=== PATIENT | male | born 1960 | race Hispanic/Latino ===

== ENCOUNTER 2021-09-12 23:10 | Inpatient (IN) | payer OTHER ==
[~2021-09-12] VITALS: Ht 172.7 cm; Wt 74.8 kg
[2021-09-12] MEDS ORDERED: SODIUM CHLORIDE 0.9% 1000ML 1,000 ML IV SCH (23:15)
[2021-09-12] MEDS ORDERED: SODIUM CHLORIDE 0.9% 1000ML 1,000 ML IV ONE (23:30)
[2021-09-12 23:38] LABS: BASOPHILS # (AUTO) 0.1 (0.0-0.1); BASOPHILS % 0.6 % (0.0-1.0); EOSINOPHILS # (AUTO) 0.1 (0.0-0.4); EOSINOPHILS % 0.7 % (0.0-6.0); HEMATOCRIT 25.6 % (38.2-49.6); LYMPHOCYTES # (AUTO) 1.1 (1.0-3.2); LYMPHOCYTES % 8.1 % (18.0-39.1); MEAN CORPUSCULAR HEMOGLOBIN 21.3 pg (28-32); MEAN CORPUSCULAR HGB CONC 26.2 g/dL (31-35); MEAN CORPUSCULAR VOLUME 81.3 fL (81-99); MONOCYTES # (AUTO) 0.8 (0.2-0.8); NEUTROPHILS # (AUTO) 11.7 (2.1-6.9); NEUTROPHILS % 83.8 % (38.7-80.0); PLATELET COUNT 501 x10e3/uL (140-360); RED BLOOD COUNT 3.15 x10e6/uL (4.3-5.7); RED CELL DISTRIBUTION WIDTH 18.6 % (11.7-14.4)
[2021-09-12 23:44] LABS: HEMOGLOBIN 6.7 g/dL (14.0-18.0)
[2021-09-12] MEDS ORDERED: SODIUM CHLORIDE 0.9% 250ML 250 ML IV ONE (23:45)
[2021-09-12 23:57] LABS: ALBUMIN 2.3 g/dL (3.5-5.0); ALBUMIN/GLOBULIN RATIO 0.5 (0.8-2.0); CALCIUM 8.9 mg/dL (8.4-10.2); CREATININE, SERUM 0.95 mg/dL (0.72-1.25)
[2021-09-13] VITALS (7 sets, daily range): BP systolic 97–116; BP diastolic 65–76
[2021-09-13] MEDS ORDERED: SODIUM CHLORIDE 0.9% 50ML 50 ML ONE (00:29)
[2021-09-13] MEDS ORDERED: IOPAMIDOL 370 MG/ML 200 ML INFUS..BTL INJ ONE (00:30)
[2021-09-13 01:14] LABS: CREATINE KINASE MB 0.8 ng/mL (0-5.0)
[2021-09-13 01:32] LABS: % IRON SATURATION 6 % (15-50); IRON 20 ug/dL (65-175); TOTAL IRON BINDING CAPACITY 337 ug/dL (261-478); TRANSFERRIN 241 mg/dL (174-364)
[2021-09-13] MEDS: SODIUM CHLORIDE 0.9% 1000ML 1,000 ML IV SCH ×3 (02:29→16:00)
[2021-09-13] MEDS ORDERED: Vancomycin IV 1 GM in SODIUM CHLORIDE 0.9% 250ML 250 ML IV ONE (03:15)
[2021-09-13] MEDS ORDERED: SODIUM CHLORIDE 0.9% 250ML 250 ML IV ONE (04:30)
[2021-09-13 07:10] LABS: CLARITY,URINE CLEAR (CLEAR); COLOR,URINE YELLOW (YELLOW); LEUKOCYTE ESTERASE ,URINE NEGATIVE (NEGATIVE); NITRITE,URINE NEGATIVE (NEGATIVE)
[2021-09-13 07:11] LABS: KETONES,URINE TRACE (NEGATIVE); PROTEIN,URINE DIPSTICK TRACE (NEGATIVE); URINE UROBILINOGEN 1 mg/dL (0.2 - 1)
[2021-09-13 07:12] LABS: BACTERIA,URINE RARE /HPF; EPITHELIAL CELLS,URINE RARE /LPF; RBC,URINE 0-5 /HPF (0-5); WBC,URINE (MAN) 0-5 /HPF (0-5)
[2021-09-13 11:40] LABS: INR 11.76
[2021-09-13] MEDS: IRON SUCROSE 100 MG in SODIUM CHLORIDE 0.9% 100 ML 100 ML IV SCH (12:49)
[2021-09-13 15:09] LABS: BASOPHILS % 0.4 % (0.0-1.0); EOSINOPHILS # (AUTO) 0.1 (0.0-0.4); EOSINOPHILS % 0.7 % (0.0-6.0); HEMATOCRIT 32.3 % (38.2-49.6); HEMOGLOBIN 9.9 g/dL (14.0-18.0); LYMPHOCYTES # (AUTO) 0.8 (1.0-3.2); LYMPHOCYTES % 7.6 % (18.0-39.1); MEAN CORPUSCULAR HGB CONC 30.7 g/dL (31-35); MEAN CORPUSCULAR VOLUME 84.8 fL (81-99); MONOCYTES # (AUTO) 0.8 (0.2-0.8); MONOCYTES % 7.5 % (4.4-11.3); NEUTROPHILS # (AUTO) 8.9 (2.1-6.9); NEUTROPHILS % 83.2 % (38.7-80.0); PLATELET COUNT 287 x10e3/uL (140-360); RED BLOOD COUNT 3.81 x10e6/uL (4.3-5.7)
[2021-09-13 15:25] LABS: CALCIUM 8.4 mg/dL (8.4-10.2); CREATININE, SERUM 0.76 mg/dL (0.72-1.25)
[2021-09-13] MEDS: CEFEPIME 1 GM in SODIUM CHLORIDE 0.9% 50ML 50 ML IV SCH ×2 (15:30→21:57)
[2021-09-13] MEDS ORDERED: CETIRIZINE HCL10 M1 PO (16:40)
[2021-09-13] MEDS ORDERED: LISINOPRIL2.5 MG PO (16:40)
[2021-09-13] MEDS ORDERED: METFORMIN HCL850 MG PO (16:40)
[2021-09-13] MEDS ORDERED: ASPIRIN CHEW81 MG PO (16:40)
[2021-09-13] MEDS ORDERED: FLOMAX0.4 MG PO (16:40)
[2021-09-13] MEDS ORDERED: JARDIANCE25 MG PO (16:40)
[2021-09-13] MEDS ORDERED: GLIPIZIDE5 MG PO (16:40)
[2021-09-13] MEDS ORDERED: METOPROLOL SUCC25 MG PO (16:40)
[2021-09-13] MEDS ORDERED: OMEPRAZOLE40 MG PO (16:40)
[2021-09-13] MEDS ORDERED: WARFARIN SODIU2.5 MG PO (16:40)
[2021-09-13] MEDS ORDERED: LIPITOR20 MG PO (16:40)
[2021-09-13] MEDS ORDERED: FINASTERIDE5 MG PO (16:40)
[2021-09-13] MEDS ORDERED: DEXTROSE 50% SYRINGE 50 ML IV PRN (16:45)
[2021-09-13] MEDS: INSULIN REGULAR, HUMAN 100 UNIT/1 ML SQ SCH ×2 (17:00→22:54)
[2021-09-13] MEDS: Vancomycin IV 1 GM in SODIUM CHLORIDE 0.9% 250ML 250 ML IV SCH (19:35)
[2021-09-13 20:58] LABS: INR 2.42; PROTHROMBIN TIME 27.7 seconds (11.9-14.5)
[2021-09-14] VITALS (8 sets, daily range): BP systolic 112–123; BP diastolic 74–81
[2021-09-14] MEDS: SODIUM CHLORIDE 0.9% 1000ML 1,000 ML IV SCH ×4 (00:10→22:46)
[2021-09-14] MEDS: Vancomycin IV 1 GM in SODIUM CHLORIDE 0.9% 250ML 250 ML IV SCH ×2 (03:53→17:56)
[2021-09-14] MEDS: CEFEPIME 1 GM in SODIUM CHLORIDE 0.9% 50ML 50 ML IV SCH ×3 (05:39→21:03)
[2021-09-14 06:20] LABS: BASOPHILS % 0.4 % (0.0-1.0); EOSINOPHILS # (AUTO) 0.1 (0.0-0.4); EOSINOPHILS % 1.2 % (0.0-6.0); HEMATOCRIT 29.2 % (38.2-49.6); HEMOGLOBIN 8.9 g/dL (14.0-18.0); LYMPHOCYTES # (AUTO) 0.6 (1.0-3.2); LYMPHOCYTES % 5.8 % (18.0-39.1); MEAN CORPUSCULAR HEMOGLOBIN 25.8 pg (28-32); MEAN CORPUSCULAR HGB CONC 30.5 g/dL (31-35); MEAN CORPUSCULAR VOLUME 84.6 fL (81-99); MONOCYTES # (AUTO) 0.8 (0.2-0.8); MONOCYTES % 7.6 % (4.4-11.3); NEUTROPHILS # (AUTO) 9.1 (2.1-6.9); NEUTROPHILS % 84.4 % (38.7-80.0); PLATELET COUNT 216 x10e3/uL (140-360); RED BLOOD COUNT 3.45 x10e6/uL (4.3-5.7); RED CELL DISTRIBUTION WIDTH 19.5 % (11.7-14.4)
[2021-09-14 06:57] LABS: ALBUMIN 2.6 g/dL (3.5-5.0); ALBUMIN/GLOBULIN RATIO 0.6 (0.8-2.0); ANION GAP 8.5 mmol/L (8-16); CALCIUM 8.6 mg/dL (8.4-10.2); CREATININE, SERUM 0.69 mg/dL (0.72-1.25); MAGNESIUM 1.6 MG/DL (1.3-2.1); POTASSIUM 4.5 mmol/L (3.5-5.1)
[2021-09-14 06:59] LABS: INR 2.44; PROTHROMBIN TIME 27.9 seconds (11.9-14.5)
[2021-09-14] MEDS: INSULIN REGULAR, HUMAN 100 UNIT/1 ML SQ SCH ×4 (07:30→20:28)
[2021-09-14] MEDS: IRON SUCROSE 100 MG in SODIUM CHLORIDE 0.9% 100 ML 100 ML IV SCH (09:14)
[2021-09-14] MEDS ORDERED: HYDROMORPHONE 1MG/1ML INJ IV PRN (11:45)
[2021-09-14] MEDS ORDERED: SODIUM CHLORIDE 0.9% 250ML 250 ML ONE ×2 (13:47→16:23)
[2021-09-14] MEDS ORDERED: BISACODYL 5 MG TAB EC PO ONE ×3 (21:45→23:45)
[2021-09-14 23:11] LABS: INR 2.3; PROTHROMBIN TIME 26.6 seconds (11.9-14.5)
[2021-09-14] MEDS ORDERED: CITRATE OF MAGNESIA 300ML BOTTLE PO ONE (23:45)
[2021-09-15] VITALS (9 sets, daily range): BP systolic 108–122; BP diastolic 72–83
[2021-09-15] MEDS: ACETAMINOPHEN 325 MG TAB PO PRN (00:26)
[2021-09-15] MEDS ORDERED: CITRATE OF MAGNESIA 300ML BOTTLE PO ONE (05:00)
[2021-09-15] MEDS: CEFEPIME 1 GM in SODIUM CHLORIDE 0.9% 50ML 50 ML IV SCH ×3 (06:42→20:54)
[2021-09-15] MEDS: Vancomycin IV 1 GM in SODIUM CHLORIDE 0.9% 250ML 250 ML IV SCH ×2 (06:45→16:35)
[2021-09-15 06:50] LABS: BASOPHILS # (AUTO) 0.1 (0.0-0.1); BASOPHILS % 0.5 % (0.0-1.0); EOSINOPHILS # (AUTO) 0.1 (0.0-0.4); EOSINOPHILS % 0.9 % (0.0-6.0); HEMATOCRIT 25.5 % (38.2-49.6); HEMOGLOBIN 7.8 g/dL (14.0-18.0); LYMPHOCYTES # (AUTO) 0.5 (1.0-3.2); LYMPHOCYTES % 5.7 % (18.0-39.1); MEAN CORPUSCULAR HGB CONC 30.6 g/dL (31-35); MONOCYTES # (AUTO) 0.8 (0.2-0.8); MONOCYTES % 8.2 % (4.4-11.3); NEUTROPHILS % 83.9 % (38.7-80.0); PLATELET COUNT 165 x10e3/uL (140-360); RED CELL DISTRIBUTION WIDTH 19.7 % (11.7-14.4)
[2021-09-15] MEDS: INSULIN REGULAR, HUMAN 100 UNIT/1 ML SQ SCH ×4 (07:30→20:34)
[2021-09-15 07:33] LABS: ALBUMIN 2.6 g/dL (3.5-5.0); ALBUMIN/GLOBULIN RATIO 0.7 (0.8-2.0); ANION GAP 12.4 mmol/L (8-16); CALCIUM 8.6 mg/dL (8.4-10.2); CREATININE, SERUM 0.68 mg/dL (0.72-1.25); MAGNESIUM 1.8 MG/DL (1.3-2.1); POTASSIUM 3.4 mmol/L (3.5-5.1)
[2021-09-15] MEDS: SODIUM CHLORIDE 0.9% 1000ML 1,000 ML IV SCH ×3 (08:00→23:04)
[2021-09-15 08:41] LABS: INR 1.62; PROTHROMBIN TIME 20.3 seconds (11.9-14.5)
[2021-09-15] MEDS ORDERED: PROPOFOL IV EMULSION 10 MG/ML 20 ML VIAL ONE (12:42)
[2021-09-15] MEDS ORDERED: HYOSCYAMINE SULFATE 0.5 MG/ML INJ ONE (12:42)
[2021-09-15] MEDS ORDERED: MIDAZOLAM HCL 2 MG/2 ML VIAL ONE (13:14)
[2021-09-15] MEDS: IRON SUCROSE 100 MG in SODIUM CHLORIDE 0.9% 100 ML 100 ML IV SCH (14:30)
[2021-09-15] MEDS ORDERED: Vancomycin IV 1 GM VIAL ONE (15:53)
[2021-09-16] VITALS (7 sets, daily range): BP systolic 113–120; BP diastolic 75–82
[2021-09-16] MEDS: Vancomycin IV 1 GM in SODIUM CHLORIDE 0.9% 250ML 250 ML IV SCH ×2 (03:51→16:57)
[2021-09-16] MEDS: CEFEPIME 1 GM in SODIUM CHLORIDE 0.9% 50ML 50 ML IV SCH ×3 (05:24→20:46)
[2021-09-16] MEDS: SODIUM CHLORIDE 0.9% 1000ML 1,000 ML IV SCH ×3 (05:24→19:41)
[2021-09-16] MEDS: INSULIN REGULAR, HUMAN 100 UNIT/1 ML SQ SCH ×4 (07:30→20:46)
[2021-09-16 08:07] LABS: BASOPHILS # (AUTO) 0.1 (0.0-0.1); BASOPHILS % 0.7 % (0.0-1.0); EOSINOPHILS # (AUTO) 0.2 (0.0-0.4); EOSINOPHILS % 1.2 % (0.0-6.0); HEMATOCRIT 31.6 % (38.2-49.6); HEMOGLOBIN 9.4 g/dL (14.0-18.0); LYMPHOCYTES # (AUTO) 0.8 (1.0-3.2); LYMPHOCYTES % 6.4 % (18.0-39.1); MEAN CORPUSCULAR HEMOGLOBIN 26.3 pg (28-32); MEAN CORPUSCULAR HGB CONC 29.7 g/dL (31-35); MEAN CORPUSCULAR VOLUME 88.3 fL (81-99); MONOCYTES # (AUTO) 1.1 (0.2-0.8); MONOCYTES % 8.8 % (4.4-11.3); NEUTROPHILS # (AUTO) 10.7 (2.1-6.9); NEUTROPHILS % 82.1 % (38.7-80.0); PLATELET COUNT 233 x10e3/uL (140-360); RED BLOOD COUNT 3.58 x10e6/uL (4.3-5.7); RED CELL DISTRIBUTION WIDTH 20.3 % (11.7-14.4)
[2021-09-16 08:29] LABS: ALBUMIN 2.6 g/dL (3.5-5.0); ALBUMIN/GLOBULIN RATIO 0.6 (0.8-2.0); ANION GAP 15.8 mmol/L (8-16); CALCIUM 8.9 mg/dL (8.4-10.2); CREATININE, SERUM 0.8 mg/dL (0.72-1.25); POTASSIUM 3.8 mmol/L (3.5-5.1)
[2021-09-16] MEDS: IRON SUCROSE 100 MG in SODIUM CHLORIDE 0.9% 100 ML 100 ML IV SCH (09:03)
[2021-09-16] MEDS ORDERED: FUROSEMIDE INJ 10 MG/ML 4 ML VIAL IV ONE (23:15)
[2021-09-16] MEDS: LACTATED RINGER'S 1,000 ML INJ SCH (23:41)
[2021-09-17] VITALS (9 sets, daily range): BP systolic 103–121; BP diastolic 76–84
[2021-09-17 04:26] LABS: BASOPHILS # (AUTO) 0.1 (0.0-0.1); BASOPHILS % 0.6 % (0.0-1.0); EOSINOPHILS # (AUTO) 0.2 (0.0-0.4); EOSINOPHILS % 1.4 % (0.0-6.0); HEMATOCRIT 30.7 % (38.2-49.6); HEMOGLOBIN 9.1 g/dL (14.0-18.0); LYMPHOCYTES # (AUTO) 0.5 (1.0-3.2); LYMPHOCYTES % 4.9 % (18.0-39.1); MEAN CORPUSCULAR HEMOGLOBIN 26.1 pg (28-32); MEAN CORPUSCULAR HGB CONC 29.6 g/dL (31-35); MEAN CORPUSCULAR VOLUME 88.2 fL (81-99); MONOCYTES # (AUTO) 0.9 (0.2-0.8); MONOCYTES % 8.4 % (4.4-11.3); NEUTROPHILS # (AUTO) 8.9 (2.1-6.9); NEUTROPHILS % 83.8 % (38.7-80.0); PLATELET COUNT 209 x10e3/uL (140-360); RED BLOOD COUNT 3.48 x10e6/uL (4.3-5.7); RED CELL DISTRIBUTION WIDTH 20.9 % (11.7-14.4)
[2021-09-17 04:36] LABS: INR 2.24; PROTHROMBIN TIME 26.1 seconds (11.9-14.5)
[2021-09-17] MEDS: Vancomycin IV 1 GM in SODIUM CHLORIDE 0.9% 250ML 250 ML IV SCH (05:03)
[2021-09-17 05:09] LABS: ALBUMIN 2.5 g/dL (3.5-5.0); ALBUMIN/GLOBULIN RATIO 0.6 (0.8-2.0); CALCIUM 8.7 mg/dL (8.4-10.2); CREATININE, SERUM 0.81 mg/dL (0.72-1.25)
[2021-09-17] MEDS: CEFEPIME 1 GM in SODIUM CHLORIDE 0.9% 50ML 50 ML IV SCH ×3 (06:43→21:19)
[2021-09-17] MEDS: INSULIN REGULAR, HUMAN 100 UNIT/1 ML SQ SCH ×4 (07:29→21:00)
[2021-09-17] MEDS: IRON SUCROSE 100 MG in SODIUM CHLORIDE 0.9% 100 ML 100 ML IV SCH (09:16)
[2021-09-17] MEDS: LACTATED RINGER'S 1,000 ML INJ SCH (23:15)
[2021-09-18] VITALS (7 sets, daily range): BP systolic 105–116; BP diastolic 74–82
[2021-09-18] MEDS ORDERED: FUROSEMIDE INJ 10 MG/ML 4 ML VIAL IV ONE (02:45)
[2021-09-18] MEDS ORDERED: PHYTONADIONE 10 MG/ML AMP IV ONE (03:00)
[2021-09-18 05:02] LABS: BASOPHILS # (AUTO) 0.1 (0.0-0.1); BASOPHILS % 0.7 % (0.0-1.0); EOSINOPHILS # (AUTO) 0.2 (0.0-0.4); EOSINOPHILS % 2.3 % (0.0-6.0); HEMATOCRIT 31.8 % (38.2-49.6); HEMOGLOBIN 9.4 g/dL (14.0-18.0); LYMPHOCYTES # (AUTO) 0.6 (1.0-3.2); LYMPHOCYTES % 5.9 % (18.0-39.1); MEAN CORPUSCULAR HEMOGLOBIN 26.4 pg (28-32); MEAN CORPUSCULAR HGB CONC 29.6 g/dL (31-35); MEAN CORPUSCULAR VOLUME 89.3 fL (81-99); MONOCYTES # (AUTO) 0.9 (0.2-0.8); MONOCYTES % 9.1 % (4.4-11.3); NEUTROPHILS # (AUTO) 7.8 (2.1-6.9); NEUTROPHILS % 81.1 % (38.7-80.0); PLATELET COUNT 225 x10e3/uL (140-360); RED BLOOD COUNT 3.56 x10e6/uL (4.3-5.7); RED CELL DISTRIBUTION WIDTH 21.8 % (11.7-14.4)
[2021-09-18 05:13] LABS: INR 2.09; PROTHROMBIN TIME 24.7 seconds (11.9-14.5)
[2021-09-18 05:22] LABS: ALBUMIN 2.3 g/dL (3.5-5.0); ALBUMIN/GLOBULIN RATIO 0.5 (0.8-2.0); ANION GAP 14.8 mmol/L (8-16); CALCIUM 8.6 mg/dL (8.4-10.2); CREATININE, SERUM 0.83 mg/dL (0.72-1.25); POTASSIUM 3.8 mmol/L (3.5-5.1)
[2021-09-18] MEDS: CEFEPIME 1 GM in SODIUM CHLORIDE 0.9% 50ML 50 ML IV SCH ×3 (05:54→22:19)
[2021-09-18] MEDS: INSULIN REGULAR, HUMAN 100 UNIT/1 ML SQ SCH ×4 (07:30→21:50)
[2021-09-18] MEDS: POLYETHYLENE GLYCOL 3350 17 GM PACK PO SCH ×2 (08:28→16:49)
[2021-09-18] MEDS: IRON SUCROSE 100 MG in SODIUM CHLORIDE 0.9% 100 ML 100 ML IV SCH (09:15)
[2021-09-18] MEDS: LACTATED RINGER'S 1,000 ML INJ SCH (22:19)
[2021-09-19] VITALS (7 sets, daily range): BP systolic 108–118; BP diastolic 71–79
[2021-09-19] MEDS ORDERED: FUROSEMIDE INJ 10 MG/ML 4 ML VIAL IV ONE ×2 (00:45→09:00)
[2021-09-19] MEDS ORDERED: PHYTONADIONE 10 MG/ML AMP IV ONE (01:00)
[2021-09-19] MEDS ORDERED: PHYTONADIONE 10MG/ML 20 MG in SODIUM CHLORIDE 0.9% 50ML 50 ML SC ONE (01:15)
[2021-09-19] MEDS ORDERED: PHYTONADIONE 10MG/ML 20 MG in SODIUM CHLORIDE 0.9% 50ML 50 ML IV ONE (01:15)
[2021-09-19] MEDS: CEFEPIME 1 GM in SODIUM CHLORIDE 0.9% 50ML 50 ML IV SCH ×3 (05:47→22:00)
[2021-09-19] MEDS: INSULIN REGULAR, HUMAN 100 UNIT/1 ML SQ SCH ×4 (07:30→22:00)
[2021-09-19] MEDS: POLYETHYLENE GLYCOL 3350 17 GM PACK PO SCH ×2 (09:00→16:55)
[2021-09-19] MEDS: IRON SUCROSE 100 MG in SODIUM CHLORIDE 0.9% 100 ML 100 ML IV SCH (09:38)
[2021-09-19] MEDS: ACETAMINOPHEN 325 MG TAB PO PRN (12:27)
[2021-09-19] MEDS ORDERED: CITRATE OF MAGNESIA 300ML BOTTLE PO ONE (15:30)
[2021-09-19] MEDS ORDERED: PHYTONADIONE 10 MG/ML AMP SQ ONE (15:30)
[2021-09-19] MEDS: METRONIDAZOLE 500 MG TAB PO SCH ×2 (16:13→23:44)
[2021-09-19] MEDS: NEOMYCIN SULFATE 500 MG TAB PO SCH ×2 (16:55→23:44)
[2021-09-19 17:17] LABS: INR 1.18; PROTHROMBIN TIME 15.8 seconds (11.9-14.5)
[2021-09-19] MEDS: MELATONIN 5 MG TABLET PO SCH (22:57)
[2021-09-19] MEDS: LACTATED RINGER'S 1,000 ML INJ SCH (23:44)
[2021-09-20] VITALS (8 sets, daily range): BP systolic 96–120; BP diastolic 67–92
[2021-09-20] MEDS: CEFEPIME 1 GM in SODIUM CHLORIDE 0.9% 50ML 50 ML IV SCH ×3 (05:25→22:04)
[2021-09-20] MEDS: METRONIDAZOLE 500 MG TAB PO SCH (05:30)
[2021-09-20] MEDS: NEOMYCIN SULFATE 500 MG TAB PO SCH (05:31)
[2021-09-20 06:06] LABS: BASOPHILS # (AUTO) 0.1 (0.0-0.1); BASOPHILS % 0.8 % (0.0-1.0); EOSINOPHILS # (AUTO) 0.2 (0.0-0.4); EOSINOPHILS % 2.4 % (0.0-6.0); HEMATOCRIT 29.9 % (38.2-49.6); HEMOGLOBIN 9.1 g/dL (14.0-18.0); LYMPHOCYTES # (AUTO) 0.7 (1.0-3.2); LYMPHOCYTES % 7.1 % (18.0-39.1); MEAN CORPUSCULAR HEMOGLOBIN 26.8 pg (28-32); MEAN CORPUSCULAR HGB CONC 30.4 g/dL (31-35); MEAN CORPUSCULAR VOLUME 88.2 fL (81-99); MONOCYTES % 10.4 % (4.4-11.3); NEUTROPHILS # (AUTO) 7.5 (2.1-6.9); NEUTROPHILS % 78.3 % (38.7-80.0); PLATELET COUNT 209 x10e3/uL (140-360); RED BLOOD COUNT 3.39 x10e6/uL (4.3-5.7); RED CELL DISTRIBUTION WIDTH 23.5 % (11.7-14.4)
[2021-09-20 06:30] LABS: ALBUMIN 2.1 g/dL (3.5-5.0); ALBUMIN/GLOBULIN RATIO 0.5 (0.8-2.0); ANION GAP 15.3 mmol/L (8-16); CALCIUM 8.6 mg/dL (8.4-10.2); CREATININE, SERUM 0.93 mg/dL (0.72-1.25); MAGNESIUM 1.9 MG/DL (1.3-2.1); POTASSIUM 3.3 mmol/L (3.5-5.1)
[2021-09-20] MEDS: INSULIN REGULAR, HUMAN 100 UNIT/1 ML SQ SCH ×4 (07:30→22:04)
[2021-09-20] MEDS: POLYETHYLENE GLYCOL 3350 17 GM PACK PO SCH ×2 (08:56→15:47)
[2021-09-20] MEDS: IRON SUCROSE 100 MG in SODIUM CHLORIDE 0.9% 100 ML 100 ML IV SCH (09:09)
[2021-09-20] MEDS ORDERED: HYDROMORPHONE 1MG/1ML INJ ONE (11:23)
[2021-09-20] MEDS ORDERED: ALBUMIN 25% 12.5GM 50ML 100 ML IV ONE (11:23)
[2021-09-20] MEDS ORDERED: METOPROLOL TARTRATE INJ 1 MG/ML VIAL ONE (12:17)
[2021-09-20] MEDS ORDERED: SEVOFLURANE INHAL SOLN 250 ML PEN BTL ONE (12:17)
[2021-09-20] MEDS ORDERED: ONDANSETRON HCL INJ 2MG/ML 2ML 2 MG/ML VIAL ONE (12:17)
[2021-09-20] MEDS ORDERED: PHENYLEPHRINE HCL 1% 10 MG/ML VIAL ONE (12:17)
[2021-09-20] MEDS ORDERED: POVIDONE IODINE 0.05% 0.05 % ML PO ONE (12:17)
[2021-09-20] MEDS ORDERED: ROCURONIUM BROMIDE 10 MG/ML 5ML VIAL IV ONE (12:17)
[2021-09-20] MEDS ORDERED: LIDOCAINE HCL 2% LOCAL INJ 5 ML SDV VIAL INJ ONE (12:17)
[2021-09-20] MEDS ORDERED: PROPOFOL IV EMULSION 10 MG/ML 20 ML VIAL ONE (12:17)
[2021-09-20] MEDS ORDERED: ESMOLOL HCL 100MG/10ML 10 MG/ML VIAL ONE (12:17)
[2021-09-20] MEDS ORDERED: DIPHENHYDRAMINE HCL INJ 50 MG/ML VIAL IM PRN (12:30)
[2021-09-20] MEDS ORDERED: KETOROLAC TROMETHAMINE 30 MG/ML VIAL IV PRN (12:30)
[2021-09-20] MEDS ORDERED: NALOXONE HCL INJ 0.4 MG/ML AMP IV PRN (12:30)
[2021-09-20] MEDS ORDERED: MORPHINE SULFATE 1 MG/ML 30ML PCA IV PRN (12:30)
[2021-09-20] MEDS ORDERED: MORPHINE SULFATE 1 MG/ML 30ML PCA ONE (12:49)
[2021-09-20] MEDS ORDERED: FENTANYL CITRATE/PF 100MCG/2 ML INJ ONE (12:53)
[2021-09-20] MEDS ORDERED: MIDAZOLAM HCL 2 MG/2 ML VIAL ONE (12:53)
[2021-09-20] MEDS: SODIUM CHLORIDE 0.9% 1000ML 1,000 ML IV SCH ×2 (13:40→19:10)
[2021-09-20] MEDS ORDERED: ACETAMINOPHEN 1000 MG/100 ML IV PRN (14:00)
[2021-09-20] MEDS: MELATONIN 5 MG TABLET PO SCH (21:00)
[2021-09-21] VITALS (8 sets, daily range): BP systolic 96–121; BP diastolic 59–76
[2021-09-21] MEDS: SODIUM CHLORIDE 0.9% 1000ML 1,000 ML IV SCH ×3 (02:11→22:00)
[2021-09-21] MEDS: CEFEPIME 1 GM in SODIUM CHLORIDE 0.9% 50ML 50 ML IV SCH ×3 (05:37→22:00)
[2021-09-21 06:19] LABS: BASOPHILS # (AUTO) 0.1 (0.0-0.1); BASOPHILS % 0.7 % (0.0-1.0); EOSINOPHILS # (AUTO) 0.1 (0.0-0.4); EOSINOPHILS % 1.1 % (0.0-6.0); HEMATOCRIT 28.6 % (38.2-49.6); HEMOGLOBIN 8.3 g/dL (14.0-18.0); LYMPHOCYTES # (AUTO) 0.7 (1.0-3.2); LYMPHOCYTES % 5.8 % (18.0-39.1); MEAN CORPUSCULAR VOLUME 93.2 fL (81-99); MONOCYTES # (AUTO) 0.9 (0.2-0.8); MONOCYTES % 7.9 % (4.4-11.3); NEUTROPHILS # (AUTO) 9.6 (2.1-6.9); NEUTROPHILS % 83.2 % (38.7-80.0); PLATELET COUNT 225 x10e3/uL (140-360); RED BLOOD COUNT 3.07 x10e6/uL (4.3-5.7); RED CELL DISTRIBUTION WIDTH 24.6 % (11.7-14.4)
[2021-09-21 06:41] LABS: INR 1.24; PROTHROMBIN TIME 16.4 seconds (11.9-14.5)
[2021-09-21 07:01] LABS: ALBUMIN 2.2 g/dL (3.5-5.0); ALBUMIN/GLOBULIN RATIO 0.6 (0.8-2.0); ANION GAP 16.3 mmol/L (8-16); CALCIUM 8.2 mg/dL (8.4-10.2); CREATININE, SERUM 1.2 mg/dL (0.72-1.25); POTASSIUM 4.3 mmol/L (3.5-5.1)
[2021-09-21] MEDS: INSULIN REGULAR, HUMAN 100 UNIT/1 ML SQ SCH ×4 (07:30→21:30)
[2021-09-21] MEDS: IRON SUCROSE 100 MG in SODIUM CHLORIDE 0.9% 100 ML 100 ML IV SCH (11:44)
[2021-09-21] MEDS: POLYETHYLENE GLYCOL 3350 17 GM PACK PO SCH ×2 (11:44→17:11)
[2021-09-21] MEDS ORDERED: Vancomycin IV 1 GM in SODIUM CHLORIDE 0.9% 250ML 250 ML IV SCH (15:00)
[2021-09-21] MEDS: MELATONIN 5 MG TABLET PO SCH (22:00)
[2021-09-21] MEDS: ONDANSETRON HCL INJ 2MG/ML 2ML 2 MG/ML VIAL IV PRN (22:31)
[2021-09-21] MEDS ORDERED: PROMETHAZINE 25MG/ NS 50ML (IV) IV PRN (23:45)
[2021-09-22] VITALS (8 sets, daily range): BP systolic 110–131; BP diastolic 70–89
[2021-09-22] MEDS: CEFEPIME 1 GM in SODIUM CHLORIDE 0.9% 50ML 50 ML IV SCH ×2 (06:11→12:04)
[2021-09-22] MEDS: METOCLOPRAMIDE HCL 10 MG/2ML VIAL IV SCH ×4 (06:11→23:49)
[2021-09-22] MEDS: SODIUM CHLORIDE 0.9% 1000ML 1,000 ML IV SCH ×2 (06:11→15:34)
[2021-09-22 07:03] LABS: HEMATOCRIT 28.1 % (38.2-49.6); HEMOGLOBIN 8.3 g/dL (14.0-18.0); MEAN CORPUSCULAR HEMOGLOBIN 27.5 pg (28-32); MEAN CORPUSCULAR HGB CONC 29.5 g/dL (31-35); PLATELET COUNT 263 x10e3/uL (140-360); RED BLOOD COUNT 3.02 x10e6/uL (4.3-5.7)
[2021-09-22 07:30] LABS: ANION GAP 17.1 mmol/L (8-16); CALCIUM 8.3 mg/dL (8.4-10.2); CREATININE, SERUM 1.44 mg/dL (0.72-1.25); POTASSIUM 4.1 mmol/L (3.5-5.1)
[2021-09-22] MEDS: INSULIN REGULAR, HUMAN 100 UNIT/1 ML SQ SCH ×4 (07:30→22:38)
[2021-09-22] MEDS: POLYETHYLENE GLYCOL 3350 17 GM PACK PO SCH ×2 (09:00→17:00)
[2021-09-22] MEDS: IRON SUCROSE 100 MG in SODIUM CHLORIDE 0.9% 100 ML 100 ML IV SCH (10:00)
[2021-09-22] MEDS ORDERED: FUROSEMIDE INJ 10 MG/ML 4 ML VIAL IV NR (12:00)
[2021-09-22] MEDS ORDERED: ALBUTEROL/IPRATROPIUM 3 ML NEB NEB PRN (12:00)
[2021-09-22] MEDS: MELATONIN 5 MG TABLET PO SCH (21:00)
[2021-09-22] MEDS: ONDANSETRON HCL INJ 2MG/ML 2ML 2 MG/ML VIAL IV PRN (22:37)
[2021-09-22] MEDS: PIPERACILLIN/TAZOBACTAM 3.375 GM in SODIUM CHLORIDE 0.9% 50ML 50 ML IV SCH (23:49)
[2021-09-23] VITALS (8 sets, daily range): BP systolic 100–111; BP diastolic 70–86
[2021-09-23 02:34] LABS: CALCIUM 8.7 mg/dL (8.4-10.2); CREATININE, SERUM 1.65 mg/dL (0.72-1.25)
[2021-09-23 04:05] LABS: BASOPHILS # (AUTO) 0.1 (0.0-0.1); BASOPHILS % 0.5 % (0.0-1.0); EOSINOPHILS # (AUTO) 0.1 (0.0-0.4); EOSINOPHILS % 0.6 % (0.0-6.0); HEMATOCRIT 28.6 % (38.2-49.6); HEMOGLOBIN 8.1 g/dL (14.0-18.0); LYMPHOCYTES # (AUTO) 0.6 (1.0-3.2); LYMPHOCYTES % 3.9 % (18.0-39.1); MEAN CORPUSCULAR HEMOGLOBIN 27.3 pg (28-32); MEAN CORPUSCULAR HGB CONC 28.3 g/dL (31-35); MEAN CORPUSCULAR VOLUME 96.3 fL (81-99); MONOCYTES # (AUTO) 0.8 (0.2-0.8); MONOCYTES % 5.4 % (4.4-11.3); NEUTROPHILS # (AUTO) 13.8 (2.1-6.9); NEUTROPHILS % 88.6 % (38.7-80.0); PLATELET COUNT 228 x10e3/uL (140-360); RED BLOOD COUNT 2.97 x10e6/uL (4.3-5.7); RED CELL DISTRIBUTION WIDTH 25.5 % (11.7-14.4)
[2021-09-23] MEDS: METOCLOPRAMIDE HCL 10 MG/2ML VIAL IV SCH ×4 (06:30→23:30)
[2021-09-23] MEDS: PIPERACILLIN/TAZOBACTAM 3.375 GM in SODIUM CHLORIDE 0.9% 50ML 50 ML IV SCH ×3 (06:30→21:27)
[2021-09-23] MEDS ORDERED: FUROSEMIDE INJ 10 MG/ML 4 ML VIAL IV ONE (06:45)
[2021-09-23 07:16] LABS: ALBUMIN 2.1 g/dL (3.5-5.0); ALBUMIN/GLOBULIN RATIO 0.5 (0.8-2.0); CALCIUM 8.6 mg/dL (8.4-10.2); CREATININE, SERUM 1.66 mg/dL (0.72-1.25)
[2021-09-23] MEDS: INSULIN REGULAR, HUMAN 100 UNIT/1 ML SQ SCH ×4 (07:30→21:21)
[2021-09-23] MEDS: POLYETHYLENE GLYCOL 3350 17 GM PACK PO SCH ×2 (09:00→17:09)
[2021-09-23] MEDS ORDERED: FUROSEMIDE INJ 10 MG/ML 2 ML VIAL IV NR (09:45)
[2021-09-23] MEDS: FUROSEMIDE INJ 10 MG/ML 2 ML VIAL IV NR ×2 (10:00→10:30)
[2021-09-23] MEDS: MELATONIN 5 MG TABLET PO SCH (21:27)
[2021-09-24] VITALS (8 sets, daily range): BP systolic 103–118; BP diastolic 69–81
[2021-09-24 05:35] LABS: BASOPHILS # (AUTO) 0.1 (0.0-0.1); BASOPHILS % 0.5 % (0.0-1.0); EOSINOPHILS # (AUTO) 0.2 (0.0-0.4); EOSINOPHILS % 1.7 % (0.0-6.0); HEMOGLOBIN 8.7 g/dL (14.0-18.0); LYMPHOCYTES # (AUTO) 0.6 (1.0-3.2); LYMPHOCYTES % 4.5 % (18.0-39.1); MEAN CORPUSCULAR HEMOGLOBIN 27.6 pg (28-32); MEAN CORPUSCULAR VOLUME 95.2 fL (81-99); MONOCYTES # (AUTO) 0.9 (0.2-0.8); MONOCYTES % 6.5 % (4.4-11.3); NEUTROPHILS % 85.9 % (38.7-80.0); PLATELET COUNT 194 x10e3/uL (140-360); RED BLOOD COUNT 3.15 x10e6/uL (4.3-5.7); RED CELL DISTRIBUTION WIDTH 26.5 % (11.7-14.4)
[2021-09-24 05:53] LABS: ALBUMIN/GLOBULIN RATIO 0.5 (0.8-2.0); ANION GAP 19.9 mmol/L (8-16); CALCIUM 9.1 mg/dL (8.4-10.2); CREATININE, SERUM 1.65 mg/dL (0.72-1.25); POTASSIUM 3.9 mmol/L (3.5-5.1)
[2021-09-24] MEDS: METOCLOPRAMIDE HCL 10 MG/2ML VIAL IV SCH ×4 (06:05→23:31)
[2021-09-24] MEDS: PIPERACILLIN/TAZOBACTAM 3.375 GM in SODIUM CHLORIDE 0.9% 50ML 50 ML IV SCH ×3 (06:05→21:39)
[2021-09-24] MEDS ORDERED: HYDROCODONE/APAP 7.5MG-325MG 1 EA TAB PO PRN (06:15)
[2021-09-24] MEDS: INSULIN REGULAR, HUMAN 100 UNIT/1 ML SQ SCH ×4 (07:30→21:39)
[2021-09-24] MEDS: POLYETHYLENE GLYCOL 3350 17 GM PACK PO SCH ×2 (09:00→16:39)
[2021-09-24 16:58] LABS: PROTHROMBIN TIME 12.4 seconds (11.9-14.5)
[2021-09-24 17:25] LABS: INR 1.12
[2021-09-24] MEDS: MELATONIN 5 MG TABLET PO SCH (21:39)
[2021-09-25] VITALS (8 sets, daily range): BP systolic 112–127; BP diastolic 74–88
[2021-09-25] MEDS: METOCLOPRAMIDE HCL 10 MG/2ML VIAL IV SCH ×4 (05:22→23:39)
[2021-09-25] MEDS: PIPERACILLIN/TAZOBACTAM 3.375 GM in SODIUM CHLORIDE 0.9% 50ML 50 ML IV SCH ×3 (05:22→21:13)
[2021-09-25] MEDS: POLYETHYLENE GLYCOL 3350 17 GM PACK PO SCH ×2 (09:00→17:00)
[2021-09-25] MEDS: INSULIN REGULAR, HUMAN 100 UNIT/1 ML SQ SCH ×4 (10:01→21:13)
[2021-09-25] MEDS: MELATONIN 5 MG TABLET PO SCH (21:12)
[2021-09-26] VITALS (7 sets, daily range): BP systolic 116–124; BP diastolic 74–85
[2021-09-26] MEDS: METOCLOPRAMIDE HCL 10 MG/2ML VIAL IV SCH ×4 (05:31→23:24)
[2021-09-26] MEDS: PIPERACILLIN/TAZOBACTAM 3.375 GM in SODIUM CHLORIDE 0.9% 50ML 50 ML IV SCH ×3 (05:31→21:43)
[2021-09-26 05:34] LABS: BASOPHILS # (AUTO) 0.1 (0.0-0.1); BASOPHILS % 0.5 % (0.0-1.0); EOSINOPHILS # (AUTO) 0.2 (0.0-0.4); HEMATOCRIT 28.5 % (38.2-49.6); HEMOGLOBIN 8.8 g/dL (14.0-18.0); LYMPHOCYTES # (AUTO) 0.7 (1.0-3.2); LYMPHOCYTES % 5.6 % (18.0-39.1); MEAN CORPUSCULAR HEMOGLOBIN 27.8 pg (28-32); MEAN CORPUSCULAR HGB CONC 30.9 g/dL (31-35); MEAN CORPUSCULAR VOLUME 90.2 fL (81-99); MONOCYTES # (AUTO) 0.8 (0.2-0.8); MONOCYTES % 7.2 % (4.4-11.3); NEUTROPHILS # (AUTO) 9.6 (2.1-6.9); NEUTROPHILS % 83.1 % (38.7-80.0); PLATELET COUNT 108 x10e3/uL (140-360); RED BLOOD COUNT 3.16 x10e6/uL (4.3-5.7); RED CELL DISTRIBUTION WIDTH 26.8 % (11.7-14.4)
[2021-09-26 06:00] LABS: ALBUMIN/GLOBULIN RATIO 0.5 (0.8-2.0); ANION GAP 18.8 mmol/L (8-16); CREATININE, SERUM 1.36 mg/dL (0.72-1.25); POTASSIUM 3.8 mmol/L (3.5-5.1)
[2021-09-26] MEDS: INSULIN REGULAR, HUMAN 100 UNIT/1 ML SQ SCH ×4 (07:30→21:10)
[2021-09-26] MEDS: POLYETHYLENE GLYCOL 3350 17 GM PACK PO SCH ×2 (08:01→16:05)
[2021-09-26] MEDS: ACETAMINOPHEN 325 MG TAB PO PRN ×3 (16:49→22:24)
[2021-09-26] MEDS: MELATONIN 5 MG TABLET PO SCH (20:54)
[2021-09-27] VITALS: BP 113/84
[2021-09-27] MEDS: ACETAMINOPHEN 325 MG TAB PO PRN (03:44)
[2021-09-27 04:00] VITALS: BP 131/86
[2021-09-27] MEDS: METOCLOPRAMIDE HCL 10 MG/2ML VIAL IV SCH ×2 (05:28→11:42)
[2021-09-27] MEDS: PIPERACILLIN/TAZOBACTAM 3.375 GM in SODIUM CHLORIDE 0.9% 50ML 50 ML IV SCH ×2 (05:28→14:07)
[2021-09-27] MEDS: INSULIN REGULAR, HUMAN 100 UNIT/1 ML SQ SCH ×2 (07:30→11:30)
[2021-09-27 07:42] VITALS: BP 117/81
[2021-09-27] MEDS: POLYETHYLENE GLYCOL 3350 17 GM PACK PO SCH (08:51)
[2021-09-27 09:05] VITALS: BP 117/81
[2021-09-27 11:10] VITALS: BP 124/90
[2021-09-28] MEDS ORDERED: CEFTRIAXONE 2 GM in SODIUM CHLORIDE 0.9% 100 ML IV SCH (09:00)
== END 2021-09-27 14:23 | DRG 329 ==
LOC: ER 23:35 → ERHOLD 09-13 00:01 → MED/SURG2 09-13 02:51
PROVIDERS: ADMIT Internal Medicine; ATTEND Internal Medicine
PROC: 0DTF0ZZ Resection of Right Large Intestine, Open Approach (ICD-10-PCS; principal; 2021-09-13)
PROC: 0WQF0ZZ Repair Abdominal Wall, Open Approach (ICD-10-PCS; 2021-09-13)
PROC: 30233K1 Transfusion of Nonautologous Frozen Plasma into Peripheral Vein, Percutaneous Approach (ICD-10-PCS; 2021-09-13)
PROC: 30233N1 Transfusion of Nonautologous Red Blood Cells into Peripheral Vein, Percutaneous Approach (ICD-10-PCS; 2021-09-13)
PROC: 0DBH8ZX Excision of Cecum, Via Natural or Artificial Opening Endoscopic, Diagnostic (ICD-10-PCS; 2021-09-15)
DX: C18.0 Malignant neoplasm of cecum (principal); K65.1 Peritoneal abscess; G93.41 Metabolic encephalopathy; J96.01 Acute respiratory failure with hypoxia; J81.0 Acute pulmonary edema; K62.6 Ulcer of anus and rectum; R18.8 Other ascites; M46.28 Osteomyelitis of vertebra, sacral and sacrococcygeal region; D68.9 Coagulation defect, unspecified; C78.00 Secondary malignant neoplasm of unspecified lung; K43.2 Incisional hernia without obstruction or gangrene; Z20.822 Contact with and (suspected) exposure to COVID-19; K64.8 Other hemorrhoids; D63.8 Anemia in other chronic diseases classified elsewhere; R53.81 Other malaise; E87.6 Hypokalemia; I12.9 Hypertensive chronic kidney disease with stage 1 through stage 4 chronic kidney disease, or unspecified chronic kidney disease; N18.30 Chronic kidney disease, stage 3 unspecified; E11.22 Type 2 diabetes mellitus with diabetic chronic kidney disease; N28.1 Cyst of kidney, acquired; I25.10 Atherosclerotic heart disease of native coronary artery without angina pectoris; Z95.1 Presence of aortocoronary bypass graft; Z88.0 Allergy status to penicillin; N50.89 Other specified disorders of the male genital organs; Z90.49 Acquired absence of other specified parts of digestive tract; Z87.891 Personal history of nicotine dependence; I25.2 Old myocardial infarction
CPT/HCPCS: 36415; 45380; 71045; 71046; 74018; 74174; 80048; 80053; 80202; 81001; 82150; 82550; 82553; 82607; 82746; 82948; 83540; 83605; 83690; 83735; 84466; 84484; 85007; 85025; 85027; 85045; 85610; 86850; 86900; 86920; 87040; 87086; 88304; 88305; 88309; 93005; 94640; 94799; 96372; 97139; 99284; J0692; J1170; J1756; J1817; J1940; J1980; J2001; J2250; J2270; J2370; J2405; J2543; J2550; J2765; J3010; J3370; J3430; J7030; J7050; J7121; P9016; P9017; Q9967; U0002

== ENCOUNTER 2021-09-28 17:38 | Inpatient (IN) | payer OTHER ==
[~2021-09-28] VITALS: Ht 172.7 cm; Wt 74.8 kg
[~2021-09-28 17:38] MED LIST: ASPIRIN CHEW81 MG PO; CETIRIZINE HCL10 M1 PO; FINASTERIDE5 MG PO; FLOMAX0.4 MG PO; GLIPIZIDE5 MG PO; JARDIANCE25 MG PO; LIPITOR20 MG PO; LISINOPRIL2.5 MG PO; METFORMIN HCL850 MG PO; METOPROLOL SUCC25 MG PO; OMEPRAZOLE40 MG PO; WARFARIN SODIU2.5 MG PO
[2021-09-28 18:24] LABS: BASOPHILS # (AUTO) 0.1 (0.0-0.1); BASOPHILS % 0.6 % (0.0-1.0); EOSINOPHILS # (AUTO) 0.2 (0.0-0.4); EOSINOPHILS % 1.2 % (0.0-6.0); HEMATOCRIT 35.3 % (38.2-49.6); HEMOGLOBIN 10.4 g/dL (14.0-18.0); LYMPHOCYTES # (AUTO) 0.7 (1.0-3.2); LYMPHOCYTES % 5.3 % (18.0-39.1); MEAN CORPUSCULAR HEMOGLOBIN 28.3 pg (28-32); MEAN CORPUSCULAR HGB CONC 29.5 g/dL (31-35); MEAN CORPUSCULAR VOLUME 95.9 fL (81-99); MONOCYTES # (AUTO) 0.7 (0.2-0.8); MONOCYTES % 5.1 % (4.4-11.3); NEUTROPHILS # (AUTO) 10.9 (2.1-6.9); NEUTROPHILS % 84.5 % (38.7-80.0); PLATELET COUNT 174 x10e3/uL (140-360); RED BLOOD COUNT 3.68 x10e6/uL (4.3-5.7); RED CELL DISTRIBUTION WIDTH 28.5 % (11.7-14.4)
[2021-09-28 18:49] LABS: ALBUMIN 2.4 g/dL (3.5-5.0); ALBUMIN/GLOBULIN RATIO 0.5 (0.8-2.0); ANION GAP 18.1 mmol/L (8-16); CALCIUM 9.3 mg/dL (8.4-10.2); CREATININE, SERUM 1.28 mg/dL (0.72-1.25); POTASSIUM 4.1 mmol/L (3.5-5.1)
[2021-09-28 18:50] LABS: AMYLASE 36 U/L (25-125); LIPASE 31 U/L (8-78)
[2021-09-28 18:56] LABS: CREATINE KINASE MB 0.6 ng/mL (0-5.0)
[2021-09-28] MEDS ORDERED: IOPAMIDOL 370 MG/ML 200 ML INFUS..BTL INJ ONE (18:56)
[2021-09-28] MEDS ORDERED: SODIUM CHLORIDE 0.9% 50ML 50 ML ONE (18:56)
[2021-09-28] MEDS ORDERED: CEFEPIME 1 GM in SODIUM CHLORIDE 0.9% 50ML 50 ML IV ONE (19:15)
[2021-09-28] MEDS ORDERED: SODIUM CHLORIDE 0.9% 1000ML 1,000 ML IV ONE (19:15)
[2021-09-28] MEDS ORDERED: SODIUM CHLORIDE 0.9% 1000ML 1,000 ML ONE (19:32)
[2021-09-28 19:51] LABS: CLARITY,URINE SL CLOUDY (CLEAR); COLOR,URINE AMBER (YELLOW)
[2021-09-28 19:52] LABS: KETONES,URINE TRACE (NEGATIVE); LEUKOCYTE ESTERASE ,URINE NEGATIVE (NEGATIVE); NITRITE,URINE NEGATIVE (NEGATIVE); PROTEIN,URINE DIPSTICK 2+ (NEGATIVE); URINE UROBILINOGEN 0.2 mg/dL (0.2 - 1)
[2021-09-28 19:55] LABS: BACTERIA,URINE RARE /HPF; RBC,URINE >50 /HPF (0-5); WBC,URINE (MAN) 0-5 /HPF (0-5)
[2021-09-28] MEDS ORDERED: HEPARIN 25,000 UNIT 1,300 UNIT in DEXTROSE 5% 250ML 250 ML IV SCH (21:45)
[2021-09-28] MEDS ORDERED: HEPARIN SOD (PORCINE) 5,000 UNIT/ML VIAL IV ONE (21:45)
[2021-09-28] MEDS ORDERED: SODIUM CHLORIDE FLUSH 10 ML SYR INJ PRN (22:00)
[2021-09-28] MEDS ORDERED: HEPARIN 25,000 UNIT DRIP IV ONE (22:08)
[2021-09-28] MEDS: HEPARIN 25,000 UNIT 1,300 UNIT in DEXTROSE 5% 250ML 250 ML IV SCH (22:30)
[2021-09-28 22:58] LABS: INR 1.46; PROTHROMBIN TIME 18.7 seconds (11.9-14.5)
[2021-09-29] VITALS (10 sets, daily range): BP systolic 111–129; BP diastolic 75–82
[2021-09-29 01:09] LABS: INR 1.29
[2021-09-29 01:10] LABS: PARTIAL THROMBOPLASTIN TIME 123.1 seconds (23.8-35.5)
[2021-09-29 07:34] LABS: BASOPHILS # (AUTO) 0.1 (0.0-0.1); BASOPHILS % 0.6 % (0.0-1.0); EOSINOPHILS # (AUTO) 0.2 (0.0-0.4); EOSINOPHILS % 1.6 % (0.0-6.0); HEMATOCRIT 33.2 % (38.2-49.6); HEMOGLOBIN 9.7 g/dL (14.0-18.0); LYMPHOCYTES # (AUTO) 0.8 (1.0-3.2); LYMPHOCYTES % 6.2 % (18.0-39.1); MEAN CORPUSCULAR HEMOGLOBIN 27.9 pg (28-32); MEAN CORPUSCULAR HGB CONC 29.2 g/dL (31-35); MEAN CORPUSCULAR VOLUME 95.4 fL (81-99); MONOCYTES # (AUTO) 0.8 (0.2-0.8); MONOCYTES % 6.6 % (4.4-11.3); NEUTROPHILS # (AUTO) 9.8 (2.1-6.9); NEUTROPHILS % 80.4 % (38.7-80.0); PLATELET COUNT 157 x10e3/uL (140-360); RED BLOOD COUNT 3.48 x10e6/uL (4.3-5.7); RED CELL DISTRIBUTION WIDTH 28.8 % (11.7-14.4)
[2021-09-29 07:56] LABS: ALBUMIN 2.1 g/dL (3.5-5.0); ALBUMIN/GLOBULIN RATIO 0.5 (0.8-2.0); ANION GAP 16.1 mmol/L (8-16); CALCIUM 8.9 mg/dL (8.4-10.2); CREATININE, SERUM 1.02 mg/dL (0.72-1.25); POTASSIUM 4.1 mmol/L (3.5-5.1)
[2021-09-29] MEDS: METFORMIN HCL 500 MG TAB PO SCH ×2 (08:39→17:25)
[2021-09-29] MEDS: GLIPIZIDE 5 MG TAB PO SCH (08:39)
[2021-09-29] MEDS: PANTOPRAZOLE SOD 40 MG TABEC PO SCH ×2 (08:42→17:25)
[2021-09-29] MEDS: LISINOPRIL 2.5 MG TAB PO SCH (08:42)
[2021-09-29] MEDS: FINASTERIDE 5 MG TAB PO SCH (08:42)
[2021-09-29] MEDS: MONTELUKAST SODIUM 10 MG TAB PO SCH (08:44)
[2021-09-29] MEDS: METOPROLOL SUCCINATE 25 MG TAB XL PO SCH (09:00)
[2021-09-29] MEDS ORDERED: PANTOPRAZOLE SOD 40 MG TABEC PO SCH (09:00)
[2021-09-29] MEDS: CEFTRIAXONE 1 GM in SODIUM CHLORIDE 0.9% 50ML 50 ML IV SCH (09:00)
[2021-09-29] MEDS: Vancomycin IV 1 GM in SODIUM CHLORIDE 0.9% 250ML 250 ML IV SCH (14:30)
[2021-09-29] MEDS: ACETAMINOPHEN 325 MG TAB PO PRN (14:45)
[2021-09-29] MEDS: ATORVASTATIN 20 MG TAB PO SCH (21:25)
[2021-09-29] MEDS: TAMSULOSIN HCL 0.4 MG CAP PO SCH (21:25)
[2021-09-29] MEDS ORDERED: CEPACOL SORE THROAT LOZENGES PO PRN (23:45)
[2021-09-30] VITALS (8 sets, daily range): BP systolic 101–116; BP diastolic 70–80
[2021-09-30] MEDS: HEPARIN 25,000 UNIT 1,300 UNIT in DEXTROSE 5% 250ML 250 ML IV SCH ×2 (00:29→23:30)
[2021-09-30] MEDS ORDERED: FUROSEMIDE INJ 10 MG/ML 4 ML VIAL IV ONE (00:45)
[2021-09-30] MEDS: Vancomycin IV 1 GM in SODIUM CHLORIDE 0.9% 250ML 250 ML IV SCH ×2 (03:13→14:30)
[2021-09-30] MEDS: ONDANSETRON HCL INJ 2MG/ML 2ML 2 MG/ML VIAL IV PRN ×2 (08:49→13:50)
[2021-09-30] MEDS: PANTOPRAZOLE SOD 40 MG TABEC PO SCH ×2 (08:49→16:21)
[2021-09-30] MEDS: GLIPIZIDE 5 MG TAB PO SCH (08:49)
[2021-09-30] MEDS: METFORMIN HCL 500 MG TAB PO SCH ×2 (08:49→16:21)
[2021-09-30] MEDS: CEFTRIAXONE 1 GM in SODIUM CHLORIDE 0.9% 50ML 50 ML IV SCH (08:50)
[2021-09-30] MEDS: LISINOPRIL 2.5 MG TAB PO SCH (08:50)
[2021-09-30] MEDS: FUROSEMIDE INJ 10 MG/ML 4 ML VIAL IV SCH ×2 (08:50→20:46)
[2021-09-30] MEDS: FINASTERIDE 5 MG TAB PO SCH (08:51)
[2021-09-30] MEDS: MONTELUKAST SODIUM 10 MG TAB PO SCH (08:51)
[2021-09-30] MEDS: METOPROLOL SUCCINATE 25 MG TAB XL PO SCH (08:55)
[2021-09-30] MEDS: HYDROXYZINE HCL 25 MG TAB PO PRN (18:10)
[2021-09-30] MEDS: TAMSULOSIN HCL 0.4 MG CAP PO SCH (20:46)
[2021-09-30] MEDS: ATORVASTATIN 20 MG TAB PO SCH (20:46)
[2021-09-30] MEDS: ACETAMINOPHEN 325 MG TAB PO PRN (22:13)
[2021-10-01] VITALS (8 sets, daily range): BP systolic 88–105; BP diastolic 64–81
[2021-10-01] MEDS: HYDROXYZINE HCL 25 MG TAB PO PRN (00:01)
[2021-10-01] MEDS: HYDROCODONE/APAP 10MG-325MG TAB PO PRN (00:54)
[2021-10-01] MEDS ORDERED: SPIRONOLACTONE 25 MG TAB PO ONE (01:30)
[2021-10-01] MEDS: Vancomycin IV 1 GM in SODIUM CHLORIDE 0.9% 250ML 250 ML IV SCH (02:30)
[2021-10-01 06:15] LABS: BASOPHILS % 0.2 % (0.0-1.0); EOSINOPHILS % 0.4 % (0.0-6.0); HEMATOCRIT 27.8 % (38.2-49.6); HEMOGLOBIN 8.5 g/dL (14.0-18.0); LYMPHOCYTES # (AUTO) 0.5 (1.0-3.2); LYMPHOCYTES % 5.3 % (18.0-39.1); MEAN CORPUSCULAR HEMOGLOBIN 29.2 pg (28-32); MEAN CORPUSCULAR HGB CONC 30.6 g/dL (31-35); MEAN CORPUSCULAR VOLUME 95.5 fL (81-99); MONOCYTES # (AUTO) 0.6 (0.2-0.8); MONOCYTES % 6.5 % (4.4-11.3); NEUTROPHILS # (AUTO) 7.7 (2.1-6.9); NEUTROPHILS % 84.4 % (38.7-80.0); PLATELET COUNT 138 x10e3/uL (140-360); RED BLOOD COUNT 2.91 x10e6/uL (4.3-5.7); RED CELL DISTRIBUTION WIDTH 29.6 % (11.7-14.4)
[2021-10-01 06:57] LABS: ALBUMIN 1.9 g/dL (3.5-5.0); ALBUMIN/GLOBULIN RATIO 0.5 (0.8-2.0); CALCIUM 8.3 mg/dL (8.4-10.2); CREATININE, SERUM 1.14 mg/dL (0.72-1.25)
[2021-10-01] MEDS: FUROSEMIDE INJ 10 MG/ML 4 ML VIAL IV SCH ×2 (09:00→21:32)
[2021-10-01] MEDS ORDERED: SPIRONOLACTONE 25 MG TAB PO SCH (09:00)
[2021-10-01] MEDS: CEFTRIAXONE 1 GM in SODIUM CHLORIDE 0.9% 50ML 50 ML IV SCH (09:00)
[2021-10-01] MEDS: GLIPIZIDE 5 MG TAB PO SCH (09:00)
[2021-10-01] MEDS: METFORMIN HCL 500 MG TAB PO SCH ×2 (09:00→17:00)
[2021-10-01] MEDS: LISINOPRIL 2.5 MG TAB PO SCH (09:00)
[2021-10-01] MEDS: MONTELUKAST SODIUM 10 MG TAB PO SCH (09:00)
[2021-10-01] MEDS: FINASTERIDE 5 MG TAB PO SCH (09:00)
[2021-10-01] MEDS: METOPROLOL SUCCINATE 25 MG TAB XL PO SCH (09:00)
[2021-10-01] MEDS: PANTOPRAZOLE SOD 40 MG TABEC PO SCH ×2 (09:00→18:40)
[2021-10-01] MEDS ORDERED: CHLORPROMAZINE HCL INJ 25 MG/ML AMP INJ ONE (17:30)
[2021-10-01] MEDS ORDERED: CHLORPROMAZINE HCL 25 MG TAB ONE (18:08)
[2021-10-01] MEDS ORDERED: CHLORPROMAZINE HCL 25 MG TAB PO ONE (18:20)
[2021-10-01] MEDS: ATORVASTATIN 20 MG TAB PO SCH (21:32)
[2021-10-01] MEDS: TAMSULOSIN HCL 0.4 MG CAP PO SCH (21:32)
[2021-10-02] VITALS (9 sets, daily range): BP systolic 76–97; BP diastolic 54–79
[2021-10-02] MEDS: HEPARIN 25,000 UNIT 1,300 UNIT in DEXTROSE 5% 250ML 250 ML IV SCH (00:30)
[2021-10-02] MEDS ORDERED: HEPARIN 25,000 UNIT DRIP IV ONE (02:05)
[2021-10-02 02:13] LABS: ABG HCO3 18 mmol/L (22-26); ABG PCO2 29 mmHg (35-45); ABG PH 7.39 (7.35-7.45); ABG PO2 80 mmHg (80-105); ABG TCO2 18
[2021-10-02 06:09] LABS: BASOPHILS % 0.1 % (0.0-1.0); EOSINOPHILS # (AUTO) 0.1 (0.0-0.4); EOSINOPHILS % 0.4 % (0.0-6.0); HEMATOCRIT 29.4 % (38.2-49.6); HEMOGLOBIN 8.7 g/dL (14.0-18.0); LYMPHOCYTES # (AUTO) 0.5 (1.0-3.2); LYMPHOCYTES % 3.2 % (18.0-39.1); MEAN CORPUSCULAR HEMOGLOBIN 28.7 pg (28-32); MEAN CORPUSCULAR HGB CONC 29.6 g/dL (31-35); MONOCYTES # (AUTO) 0.8 (0.2-0.8); MONOCYTES % 5.7 % (4.4-11.3); NEUTROPHILS # (AUTO) 12.6 (2.1-6.9); NEUTROPHILS % 89.3 % (38.7-80.0); PLATELET COUNT 148 x10e3/uL (140-360); RED BLOOD COUNT 3.03 x10e6/uL (4.3-5.7); RED CELL DISTRIBUTION WIDTH 29.9 % (11.7-14.4)
[2021-10-02 06:28] LABS: ALBUMIN 1.9 g/dL (3.5-5.0); ALBUMIN/GLOBULIN RATIO 0.5 (0.8-2.0); ANION GAP 17.3 mmol/L (8-16); POTASSIUM 4.3 mmol/L (3.5-5.1)
[2021-10-02 06:53] LABS: CALCIUM 8.2 mg/dL (8.4-10.2); CREATININE, SERUM 1.7 mg/dL (0.72-1.25)
[2021-10-02] MEDS: MONTELUKAST SODIUM 10 MG TAB PO SCH (09:00)
[2021-10-02] MEDS: FINASTERIDE 5 MG TAB PO SCH (09:00)
[2021-10-02] MEDS: GLIPIZIDE 5 MG TAB PO SCH (09:00)
[2021-10-02] MEDS: FUROSEMIDE INJ 10 MG/ML 4 ML VIAL IV SCH ×2 (09:00→20:45)
[2021-10-02] MEDS: SPIRONOLACTONE 25 MG TAB PO SCH (09:00)
[2021-10-02] MEDS: METFORMIN HCL 500 MG TAB PO SCH ×2 (09:00→17:02)
[2021-10-02] MEDS: CEFTRIAXONE 1 GM in SODIUM CHLORIDE 0.9% 50ML 50 ML IV SCH (09:00)
[2021-10-02] MEDS: PANTOPRAZOLE SOD 40 MG TABEC PO SCH ×2 (09:00→17:02)
[2021-10-02] MEDS: METOPROLOL SUCCINATE 25 MG TAB XL PO SCH (09:00)
[2021-10-02] MEDS: Vancomycin IV 1 GM in SODIUM CHLORIDE 0.9% 250ML 250 ML IV SCH (10:00)
[2021-10-02 10:07] LABS: LYMPHOCYTES % (MANUAL) 1 % (19-48); METAMYELOCYTES % (MANUAL) 1 % (0-0); MONOCYTES % (MANUAL) 4 % (3.4-9.0); MYELOCYTES % (MANUAL) 2 % (0-0); NEUTROPHILS % (MANUAL) 92 % (40-74)
[2021-10-02 10:08] LABS: ANISOCYTOSIS MARKED; PLATELET ESTIMATE ADEQUATE; PLATELET MORPHOLOGY COMMENT NORMAL; RBC MORPHOLOGY COMMENT ABNORMAL
[2021-10-02 10:09] LABS: HYPOCHROMASIA MODERATE
[2021-10-02] MEDS: MIDODRINE HCL 5 MG TABLET PO SCH ×2 (12:00→17:02)
[2021-10-02] MEDS: TAMSULOSIN HCL 0.4 MG CAP PO SCH (20:45)
[2021-10-02] MEDS: ONDANSETRON HCL 4 MG ORAL DISINTEGRATING TAB PO PRN (23:31)
[2021-10-03] VITALS (8 sets, daily range): BP systolic 76–155; BP diastolic 57–72
[2021-10-03] MEDS: ONDANSETRON HCL 4 MG ORAL DISINTEGRATING TAB PO PRN ×2 (03:43→10:07)
[2021-10-03] MEDS: HEPARIN 25,000 UNIT 1,300 UNIT in DEXTROSE 5% 250ML 250 ML IV SCH ×2 (04:25→09:48)
[2021-10-03] MEDS ORDERED: HEPARIN 25,000 UNIT DRIP IV ONE (04:26)
[2021-10-03 04:42] LABS: BASOPHILS % 0.2 % (0.0-1.0); EOSINOPHILS # (AUTO) 0.1 (0.0-0.4); EOSINOPHILS % 0.3 % (0.0-6.0); HEMATOCRIT 27.5 % (38.2-49.6); HEMOGLOBIN 8.3 g/dL (14.0-18.0); LYMPHOCYTES # (AUTO) 0.4 (1.0-3.2); LYMPHOCYTES % 2.4 % (18.0-39.1); MEAN CORPUSCULAR HEMOGLOBIN 29.1 pg (28-32); MEAN CORPUSCULAR HGB CONC 30.2 g/dL (31-35); MEAN CORPUSCULAR VOLUME 96.5 fL (81-99); MONOCYTES # (AUTO) 0.8 (0.2-0.8); MONOCYTES % 4.9 % (4.4-11.3); NEUTROPHILS % 91.4 % (38.7-80.0); PLATELET COUNT 143 x10e3/uL (140-360); RED BLOOD COUNT 2.85 x10e6/uL (4.3-5.7); RED CELL DISTRIBUTION WIDTH 29.1 % (11.7-14.4)
[2021-10-03 05:01] LABS: ALBUMIN 1.8 g/dL (3.5-5.0); ALBUMIN/GLOBULIN RATIO 0.4 (0.8-2.0); ANION GAP 19.8 mmol/L (8-16); CREATININE, SERUM 2.14 mg/dL (0.72-1.25); MAGNESIUM 1.7 MG/DL (1.3-2.1); POTASSIUM 4.8 mmol/L (3.5-5.1)
[2021-10-03 08:16] LABS: BAND NEUTROPHILS % (MANUAL) 1 %; LYMPHOCYTES % (MANUAL) 5 % (19-48); METAMYELOCYTES % (MANUAL) 1 % (0-0); MONOCYTES % (MANUAL) 4 % (3.4-9.0); NEUTROPHILS % (MANUAL) 89 % (40-74)
[2021-10-03 08:17] LABS: ANISOCYTOSIS MARKED; HYPOCHROMASIA SLIGHT; PLATELET ESTIMATE ADEQUATE; PLATELET MORPHOLOGY COMMENT NORMAL; RBC MORPHOLOGY COMMENT ABNORMAL
[2021-10-03] MEDS ORDERED: FUROSEMIDE INJ 10 MG/ML 2 ML VIAL IV SCH (09:00)
[2021-10-03] MEDS: CEFTRIAXONE 1 GM in SODIUM CHLORIDE 0.9% 50ML 50 ML IV SCH (09:13)
[2021-10-03] MEDS: MIDODRINE HCL 5 MG TABLET PO SCH ×3 (09:15→16:24)
[2021-10-03] MEDS: FINASTERIDE 5 MG TAB PO SCH (09:16)
[2021-10-03] MEDS: MONTELUKAST SODIUM 10 MG TAB PO SCH (09:16)
[2021-10-03] MEDS: GLIPIZIDE 5 MG TAB PO SCH (09:16)
[2021-10-03] MEDS: SPIRONOLACTONE 25 MG TAB PO SCH (09:16)
[2021-10-03] MEDS: METFORMIN HCL 500 MG TAB PO SCH ×2 (09:16→16:24)
[2021-10-03] MEDS: METOPROLOL SUCCINATE 25 MG TAB XL PO SCH (09:16)
[2021-10-03] MEDS: Vancomycin IV 1 GM in SODIUM CHLORIDE 0.9% 250ML 250 ML IV SCH (09:16)
[2021-10-03] MEDS: PANTOPRAZOLE SOD 40 MG TABEC PO SCH ×2 (09:16→16:24)
[2021-10-03] MEDS ORDERED: SODIUM CHLORIDE 0.9% 250ML 250 ML ONE (09:40)
[2021-10-03] MEDS: TAMSULOSIN HCL 0.4 MG CAP PO SCH (21:00)
[2021-10-04] VITALS (8 sets, daily range): BP systolic 75–105; BP diastolic 57–65
[2021-10-04] MEDS ORDERED: HEPARIN 25,000 UNIT 1,300 UNIT in DEXTROSE 5% 250ML 250 ML IV SCH ×2
[2021-10-04] MEDS: HEPARIN IV SCH ×2 (00:15→17:32)
[2021-10-04] MEDS: DEXTROSE 5% IV SCH ×2 (00:15→17:32)
[2021-10-04] MEDS ORDERED: SODIUM CHLORIDE 0.9% 1000ML 1,000 ML IV ONE (01:00)
[2021-10-04] MEDS: METOCLOPRAMIDE HCL 10 MG/2ML VIAL IV SCH ×4 (01:47→17:31)
[2021-10-04 05:44] LABS: ALBUMIN 1.7 g/dL (3.5-5.0); ALBUMIN/GLOBULIN RATIO 0.4 (0.8-2.0); ANION GAP 19.9 mmol/L (8-16); CREATININE, SERUM 2.71 mg/dL (0.72-1.25); POTASSIUM 4.9 mmol/L (3.5-5.1)
[2021-10-04 06:42] LABS: BASOPHILS % 0.1 % (0.0-1.0); EOSINOPHILS % 0.2 % (0.0-6.0); HEMATOCRIT 27.7 % (38.2-49.6); HEMOGLOBIN 8.5 g/dL (14.0-18.0); LYMPHOCYTES # (AUTO) 0.5 (1.0-3.2); LYMPHOCYTES % 2.9 % (18.0-39.1); MEAN CORPUSCULAR HGB CONC 30.7 g/dL (31-35); MEAN CORPUSCULAR VOLUME 94.5 fL (81-99); MONOCYTES # (AUTO) 1.1 (0.2-0.8); MONOCYTES % 6.2 % (4.4-11.3); NEUTROPHILS # (AUTO) 16.2 (2.1-6.9); NEUTROPHILS % 89.8 % (38.7-80.0); PLATELET COUNT 149 x10e3/uL (140-360); RED BLOOD COUNT 2.93 x10e6/uL (4.3-5.7); RED CELL DISTRIBUTION WIDTH 28.7 % (11.7-14.4)
[2021-10-04 06:53] LABS: INR 1.26; PROTHROMBIN TIME 16.6 seconds (11.9-14.5)
[2021-10-04] MEDS: MIDODRINE HCL 5 MG TABLET PO SCH ×3 (08:00→17:30)
[2021-10-04] MEDS: PANTOPRAZOLE SOD 40 MG TABEC PO SCH ×2 (08:15→17:30)
[2021-10-04] MEDS: GLIPIZIDE 5 MG TAB PO SCH (08:15)
[2021-10-04] MEDS: FINASTERIDE 5 MG TAB PO SCH (08:15)
[2021-10-04] MEDS: METOPROLOL SUCCINATE 25 MG TAB XL PO SCH (08:15)
[2021-10-04] MEDS: MONTELUKAST SODIUM 10 MG TAB PO SCH (08:15)
[2021-10-04] MEDS: METFORMIN HCL 500 MG TAB PO SCH ×2 (08:15→17:30)
[2021-10-04] MEDS: CEFTRIAXONE 1 GM in SODIUM CHLORIDE 0.9% 50ML 50 ML IV SCH (09:08)
[2021-10-04] MEDS: Vancomycin IV 1 GM in SODIUM CHLORIDE 0.9% 250ML 250 ML IV SCH (10:00)
[2021-10-04 14:19] LABS: BODY FLUID APPEARANCE SL.CLOUDY; BODY FLUID COLOR STRAW; BODY FLUID TYPE PLEURAL; RBC,BODY FLUID 1000 cells/uL; WBC,BODY FLUID 46 cells/uL
[2021-10-04] MEDS: FLUCONAZOLE 200 MG/100 ML 100 ML IV SCH (14:35)
[2021-10-04] MEDS ORDERED: LIDOCAINE HCL 1% LOCAL INJ 20 ML VIAL ONE (14:47)
[2021-10-04] MEDS ORDERED: FENTANYL CITRATE/PF 100MCG/2 ML INJ ONE (14:59)
[2021-10-04] MEDS ORDERED: MIDAZOLAM HCL 2 MG/2 ML VIAL ONE (14:59)
[2021-10-04 16:00] LABS: LYMPHOCYTES,BODY FLUID 50 %; MONO/MACROPHG,BODY FLUID 40 %; NEUTROPHILS,BODY FLUID 9 %; OTHER CELLS,BODY FLUID 1 %
[2021-10-04] MEDS: HYDROCODONE/APAP 10MG-325MG TAB PO PRN (16:33)
[2021-10-04] MEDS: ACETAMINOPHEN 325 MG TAB PO PRN (17:39)
[2021-10-04] MEDS: TAMSULOSIN HCL 0.4 MG CAP PO SCH (21:21)
[2021-10-05] VITALS (8 sets, daily range): BP systolic 79–171; BP diastolic 47–150
[2021-10-05] MEDS: METOCLOPRAMIDE HCL 10 MG/2ML VIAL IV SCH ×5 (00:01→23:35)
[2021-10-05] MEDS: ACETAMINOPHEN 325 MG TAB PO PRN ×2 (00:02→05:58)
[2021-10-05] MEDS ORDERED: HEPARIN 25,000 UNIT DRIP IV ONE (05:59)
[2021-10-05] MEDS: DEXTROSE 5% IV SCH (05:59)
[2021-10-05] MEDS: HEPARIN IV SCH (05:59)
[2021-10-05 06:18] LABS: BASOPHILS % 0.1 % (0.0-1.0); EOSINOPHILS # (AUTO) 0.2 (0.0-0.4); HEMOGLOBIN 8.5 g/dL (14.0-18.0); LYMPHOCYTES # (AUTO) 0.5 (1.0-3.2); MEAN CORPUSCULAR HEMOGLOBIN 29.1 pg (28-32); MEAN CORPUSCULAR HGB CONC 30.4 g/dL (31-35); MEAN CORPUSCULAR VOLUME 95.9 fL (81-99); MONOCYTES # (AUTO) 0.9 (0.2-0.8); MONOCYTES % 5.9 % (4.4-11.3); NEUTROPHILS # (AUTO) 13.9 (2.1-6.9); NEUTROPHILS % 89.2 % (38.7-80.0); PLATELET COUNT 121 x10e3/uL (140-360); RED BLOOD COUNT 2.92 x10e6/uL (4.3-5.7)
[2021-10-05 06:37] LABS: ALBUMIN 1.7 g/dL (3.5-5.0); ALBUMIN/GLOBULIN RATIO 0.4 (0.8-2.0); ANION GAP 19.3 mmol/L (8-16); CREATININE, SERUM 3.47 mg/dL (0.72-1.25); POTASSIUM 5.3 mmol/L (3.5-5.1)
[2021-10-05] MEDS: METOPROLOL SUCCINATE 25 MG TAB XL PO SCH (09:00)
[2021-10-05] MEDS: GLIPIZIDE 5 MG TAB PO SCH (09:05)
[2021-10-05] MEDS: MONTELUKAST SODIUM 10 MG TAB PO SCH (09:05)
[2021-10-05] MEDS: METFORMIN HCL 500 MG TAB PO SCH (09:05)
[2021-10-05] MEDS: MIDODRINE HCL 5 MG TABLET PO SCH ×3 (09:05→16:31)
[2021-10-05] MEDS: PANTOPRAZOLE SOD 40 MG TABEC PO SCH ×2 (09:05→16:32)
[2021-10-05] MEDS: FINASTERIDE 5 MG TAB PO SCH (09:05)
[2021-10-05] MEDS: CEFTRIAXONE 1 GM in SODIUM CHLORIDE 0.9% 50ML 50 ML IV SCH (09:05)
[2021-10-05] MEDS ORDERED: ALBUMIN 25% 25GM 100ML 0.25 GM/ML BTL IV ONE (13:00)
[2021-10-05] MEDS ORDERED: ALBUMIN 25% 12.5GM 50ML 100 ML IV ONE (14:00)
[2021-10-05] MEDS: FLUCONAZOLE 200 MG/100 ML 100 ML IV SCH (14:31)
[2021-10-05] MEDS: HYDROCODONE/APAP 10MG-325MG TAB PO PRN (14:59)
[2021-10-05] MEDS: TAMSULOSIN HCL 0.4 MG CAP PO SCH (20:23)
[2021-10-06] VITALS (8 sets, daily range): BP systolic 78–99; BP diastolic 41–62
[2021-10-06] MEDS: HEPARIN IV SCH ×2 (00:15→18:09)
[2021-10-06] MEDS: DEXTROSE 5% IV SCH ×2 (00:15→18:09)
[2021-10-06] MEDS ORDERED: DEXTROSE 50% SYRINGE 50 ML IV STA (02:09)
[2021-10-06] MEDS: METOCLOPRAMIDE HCL 10 MG/2ML VIAL IV SCH ×3 (05:55→17:44)
[2021-10-06] MEDS: MIDODRINE HCL 5 MG TABLET PO SCH ×3 (08:20→16:56)
[2021-10-06] MEDS: CEFTRIAXONE 1 GM in SODIUM CHLORIDE 0.9% 50ML 50 ML IV SCH (08:20)
[2021-10-06] MEDS: PANTOPRAZOLE SOD 40 MG TABEC PO SCH ×2 (08:21→16:56)
[2021-10-06] MEDS: MONTELUKAST SODIUM 10 MG TAB PO SCH (08:21)
[2021-10-06] MEDS: FINASTERIDE 5 MG TAB PO SCH (08:21)
[2021-10-06] MEDS: GLIPIZIDE 5 MG TAB PO SCH (09:00)
[2021-10-06] MEDS: DEXTROSE 50% SYRINGE 50 ML IV PRN (09:05)
[2021-10-06] MEDS ORDERED: ALBUMIN 25% 12.5GM 0.25 GM/ML BTL IV NR (11:30)
[2021-10-06] MEDS ORDERED: SODIUM BICARBONATE 8.4% SYRING 150 ML in DEXTROSE 5% 1,000 ML IV ONE (11:30)
[2021-10-06 11:57] LABS: BASOPHILS % 0.2 % (0.0-1.0); EOSINOPHILS # (AUTO) 0.1 (0.0-0.4); EOSINOPHILS % 0.6 % (0.0-6.0); HEMATOCRIT 32.9 % (38.2-49.6); HEMOGLOBIN 9.2 g/dL (14.0-18.0); LYMPHOCYTES # (AUTO) 0.5 (1.0-3.2); LYMPHOCYTES % 3.3 % (18.0-39.1); MEAN CORPUSCULAR HEMOGLOBIN 28.8 pg (28-32); MEAN CORPUSCULAR VOLUME 102.8 fL (81-99); MONOCYTES # (AUTO) 0.9 (0.2-0.8); NEUTROPHILS # (AUTO) 13.4 (2.1-6.9); PLATELET COUNT 112 x10e3/uL (140-360); RED CELL DISTRIBUTION WIDTH 27.1 % (11.7-14.4)
[2021-10-06 12:28] LABS: ANION GAP 23.2 mmol/L (8-16); CREATININE, SERUM 4.34 mg/dL (0.72-1.25)
[2021-10-06 12:38] LABS: POTASSIUM 6.2 mmol/L (3.5-5.1)
[2021-10-06] MEDS: FLUCONAZOLE 200 MG/100 ML 100 ML IV SCH ×2 (13:30→14:00)
[2021-10-06] MEDS: HYDROCORTISONE SOD SUCCINATE 100 MG VIAL IV SCH ×2 (14:00→21:29)
[2021-10-06] MEDS ORDERED: DEXTROSE 50% SYRINGE 50 ML IV NR (14:15)
[2021-10-06] MEDS ORDERED: SOD POLYSTYRENE SULFONATE SUSP 15 GM/60 ML BTL PO NR (14:15)
[2021-10-06] MEDS ORDERED: CALCIUM GLUCONATE 10% INJ 4.65 MEQ in SODIUM CHLORIDE 0.9% 50ML 50 ML IV ONE (14:15)
[2021-10-06] MEDS ORDERED: INSULIN REGULAR, HUMAN 100 UNIT/1 ML IV NR (14:15)
[2021-10-06] MEDS: METRONIDAZOLE 500MG/NS 100ML 100 ML IV SCH ×2 (14:35→21:29)
[2021-10-06] MEDS: TAMSULOSIN HCL 0.4 MG CAP PO SCH (21:28)
[2021-10-07] VITALS (10 sets, daily range): BP systolic 90–168; BP diastolic 62–88
[2021-10-07] MEDS: METOCLOPRAMIDE HCL 10 MG/2ML VIAL IV SCH ×4 (00:07→17:03)
[2021-10-07 01:13] LABS: ANION GAP 22.6 mmol/L (8-16); CALCIUM 8.1 mg/dL (8.4-10.2); CREATININE, SERUM 4.57 mg/dL (0.72-1.25)
[2021-10-07 01:19] LABS: POTASSIUM 5.6 mmol/L (3.5-5.1)
[2021-10-07] MEDS: HYDROCORTISONE SOD SUCCINATE 100 MG VIAL IV SCH ×3 (06:23→22:04)
[2021-10-07] MEDS: METRONIDAZOLE 500MG/NS 100ML 100 ML IV SCH ×3 (06:23→22:04)
[2021-10-07] MEDS: PANTOPRAZOLE SOD 40 MG TABEC PO SCH ×2 (08:18→16:56)
[2021-10-07] MEDS: MONTELUKAST SODIUM 10 MG TAB PO SCH (08:18)
[2021-10-07] MEDS: MIDODRINE HCL 5 MG TABLET PO SCH ×3 (08:18→16:27)
[2021-10-07] MEDS: GLIPIZIDE 5 MG TAB PO SCH (08:18)
[2021-10-07] MEDS: CEFTRIAXONE 1 GM in SODIUM CHLORIDE 0.9% 50ML 50 ML IV SCH (08:18)
[2021-10-07] MEDS: FINASTERIDE 5 MG TAB PO SCH (09:00)
[2021-10-07] MEDS ORDERED: SOD POLYSTYRENE SULFONATE SUSP 15 GM/60 ML BTL PO NR (14:45)
[2021-10-07] MEDS ORDERED: LACTULOSE SYRUP 20 GM/30 ML UDC PO NR (14:45)
[2021-10-07] MEDS ORDERED: DEXTROSE 5% 1,000 ML IV ONE (21:06)
[2021-10-07] MEDS ORDERED: SODIUM BICARBONATE 8.4% SYRING 150 ML ONE (21:07)
[2021-10-07] MEDS: TAMSULOSIN HCL 0.4 MG CAP PO SCH (21:29)
[2021-10-07] MEDS ORDERED: INSULIN LISPRO 100 UNIT/1 ML 3ML VIAL SQ ONE ×2 (21:30→21:45)
[2021-10-07] MEDS: SODIUM BICARBONATE 8.4% 150 ML in DEXTROSE 5% 1,000 ML IV SCH (22:03)
[2021-10-07] MEDS: ACETAMINOPHEN 325 MG TAB PO PRN (22:31)
[2021-10-08] VITALS (7 sets, daily range): BP systolic 97–111; BP diastolic 69–80
[2021-10-08] MEDS: METOCLOPRAMIDE HCL 10 MG/2ML VIAL IV SCH ×4 (01:01→18:34)
[2021-10-08] MEDS: DEXTROSE 5% IV SCH (02:53)
[2021-10-08] MEDS: HEPARIN IV SCH (02:53)
[2021-10-08] MEDS: HYDROCORTISONE SOD SUCCINATE 100 MG VIAL IV SCH ×3 (05:14→22:00)
[2021-10-08] MEDS: METRONIDAZOLE 500MG/NS 100ML 100 ML IV SCH ×3 (05:14→22:00)
[2021-10-08] MEDS: ACETAMINOPHEN 325 MG TAB PO PRN (05:21)
[2021-10-08] MEDS ORDERED: SODIUM CHLORIDE 0.9% 250ML 250 ML ONE (05:35)
[2021-10-08 08:10] LABS: BASOPHILS % 0.2 % (0.0-1.0); HEMATOCRIT 28.3 % (38.2-49.6); LYMPHOCYTES # (AUTO) 0.4 (1.0-3.2); LYMPHOCYTES % 2.7 % (18.0-39.1); MEAN CORPUSCULAR HEMOGLOBIN 28.5 pg (28-32); MEAN CORPUSCULAR HGB CONC 31.1 g/dL (31-35); MEAN CORPUSCULAR VOLUME 91.6 fL (81-99); MONOCYTES # (AUTO) 0.8 (0.2-0.8); MONOCYTES % 5.6 % (4.4-11.3); NEUTROPHILS # (AUTO) 13.5 (2.1-6.9); NEUTROPHILS % 90.4 % (38.7-80.0); RED BLOOD COUNT 3.09 x10e6/uL (4.3-5.7); RED CELL DISTRIBUTION WIDTH 26.5 % (11.7-14.4)
[2021-10-08 08:11] LABS: HEMOGLOBIN 8.8 g/dL (14.0-18.0); PLATELET COUNT 82 x10e3/uL (140-360)
[2021-10-08] MEDS: PANTOPRAZOLE SOD 40 MG TABEC PO SCH ×2 (08:26→17:07)
[2021-10-08] MEDS: MONTELUKAST SODIUM 10 MG TAB PO SCH (08:26)
[2021-10-08] MEDS: FINASTERIDE 5 MG TAB PO SCH (08:26)
[2021-10-08] MEDS: GLIPIZIDE 5 MG TAB PO SCH (08:26)
[2021-10-08] MEDS: MIDODRINE HCL 5 MG TABLET PO SCH ×3 (08:26→17:06)
[2021-10-08] MEDS: CEFTRIAXONE 1 GM in SODIUM CHLORIDE 0.9% 50ML 50 ML IV SCH (08:26)
[2021-10-08 08:31] LABS: ALBUMIN 1.8 g/dL (3.5-5.0); ALBUMIN/GLOBULIN RATIO 0.5 (0.8-2.0); ANION GAP 20.1 mmol/L (8-16); CALCIUM 7.6 mg/dL (8.4-10.2); CREATININE, SERUM 4.48 mg/dL (0.72-1.25); POTASSIUM 5.1 mmol/L (3.5-5.1)
[2021-10-08] MEDS ORDERED: DEXTROSE 50% SYRINGE 50 ML IV PRN (11:45)
[2021-10-08] MEDS: INSULIN LISPRO 100 UNIT/1 ML 3ML VIAL SQ SCH ×3 (12:07→22:00)
[2021-10-08] MEDS: FLUCONAZOLE 200 MG/100 ML 100 ML IV SCH (13:50)
[2021-10-08] MEDS: SODIUM BICARBONATE 8.4% 150 ML in DEXTROSE 5% 1,000 ML IV SCH (13:50)
[2021-10-08] MEDS: SODIUM BICARBONATE 650 MG TAB PO SCH ×2 (15:23→22:00)
[2021-10-08] MEDS: FUROSEMIDE INJ 10 MG/ML 4 ML VIAL IV SCH (22:00)
[2021-10-08] MEDS: TAMSULOSIN HCL 0.4 MG CAP PO SCH (22:00)
[2021-10-09] VITALS: BP 111/70
[2021-10-09] MEDS: HEPARIN IV SCH (00:15)
[2021-10-09] MEDS: DEXTROSE 5% IV SCH (00:15)
[2021-10-09] MEDS: METOCLOPRAMIDE HCL 10 MG/2ML VIAL IV SCH ×4 (00:26→18:28)
[2021-10-09 04:00] VITALS: BP 111/64
[2021-10-09 05:42] LABS: BASOPHILS % 0.1 % (0.0-1.0); HEMATOCRIT 28.6 % (38.2-49.6); HEMOGLOBIN 9.1 g/dL (14.0-18.0); LYMPHOCYTES # (AUTO) 0.4 (1.0-3.2); LYMPHOCYTES % 2.9 % (18.0-39.1); MEAN CORPUSCULAR HEMOGLOBIN 28.7 pg (28-32); MEAN CORPUSCULAR HGB CONC 31.8 g/dL (31-35); MEAN CORPUSCULAR VOLUME 90.2 fL (81-99); MONOCYTES # (AUTO) 0.7 (0.2-0.8); MONOCYTES % 4.8 % (4.4-11.3); NEUTROPHILS # (AUTO) 13.6 (2.1-6.9); NEUTROPHILS % 90.9 % (38.7-80.0); RED BLOOD COUNT 3.17 x10e6/uL (4.3-5.7); RED CELL DISTRIBUTION WIDTH 26.2 % (11.7-14.4)
[2021-10-09 05:43] LABS: PLATELET COUNT 51 x10e3/uL (140-360)
[2021-10-09 06:11] LABS: ALBUMIN 1.8 g/dL (3.5-5.0); ALBUMIN/GLOBULIN RATIO 0.4 (0.8-2.0); ANION GAP 21.2 mmol/L (8-16); CALCIUM 7.9 mg/dL (8.4-10.2); CREATININE, SERUM 4.19 mg/dL (0.72-1.25); POTASSIUM 4.2 mmol/L (3.5-5.1)
[2021-10-09] MEDS: METRONIDAZOLE 500MG/NS 100ML 100 ML IV SCH ×3 (06:20→22:30)
[2021-10-09] MEDS: HYDROCORTISONE SOD SUCCINATE 100 MG VIAL IV SCH ×3 (06:20→22:30)
[2021-10-09] MEDS: FUROSEMIDE INJ 10 MG/ML 4 ML VIAL IV SCH ×3 (06:20→22:30)
[2021-10-09] MEDS: INSULIN LISPRO 100 UNIT/1 ML 3ML VIAL SQ SCH ×4 (07:30→22:30)
[2021-10-09 08:07] VITALS: BP 105/67
[2021-10-09 08:25] VITALS: BP 105/67
[2021-10-09] MEDS: GLIPIZIDE 5 MG TAB PO SCH (08:30)
[2021-10-09] MEDS: FINASTERIDE 5 MG TAB PO SCH (09:37)
[2021-10-09] MEDS: MIDODRINE HCL 5 MG TABLET PO SCH ×3 (09:37→16:48)
[2021-10-09] MEDS: MONTELUKAST SODIUM 10 MG TAB PO SCH (09:38)
[2021-10-09] MEDS: PANTOPRAZOLE SOD 40 MG TABEC PO SCH ×2 (09:38→16:48)
[2021-10-09] MEDS: SODIUM BICARBONATE 650 MG TAB PO SCH ×3 (09:38→22:30)
[2021-10-09] MEDS: ACETAMINOPHEN 325 MG TAB PO PRN (09:45)
[2021-10-09] MEDS: FLUCONAZOLE 200 MG/100 ML 100 ML IV SCH (15:00)
[2021-10-09] MEDS ORDERED: HEPARIN 25,000 UNIT DRIP IV ONE (16:06)
[2021-10-09 20:00] VITALS: BP 112/73
[2021-10-09 21:00] VITALS: BP 112/73
[2021-10-09] MEDS: TAMSULOSIN HCL 0.4 MG CAP PO SCH (22:30)
[2021-10-10] VITALS (8 sets, daily range): BP systolic 90–117; BP diastolic 65–83
[2021-10-10] MEDS: METOCLOPRAMIDE HCL 10 MG/2ML VIAL IV SCH ×4 (00:12→18:29)
[2021-10-10] MEDS: HEPARIN IV SCH (00:15)
[2021-10-10] MEDS: DEXTROSE 5% IV SCH (00:15)
[2021-10-10] MEDS: HYDROCORTISONE SOD SUCCINATE 100 MG VIAL IV SCH ×3 (06:20→21:47)
[2021-10-10] MEDS: METRONIDAZOLE 500MG/NS 100ML 100 ML IV SCH ×3 (06:20→21:47)
[2021-10-10] MEDS: FUROSEMIDE INJ 10 MG/ML 4 ML VIAL IV SCH ×3 (06:20→21:47)
[2021-10-10 06:42] LABS: HEMATOCRIT 28.2 % (38.2-49.6); HEMOGLOBIN 9.3 g/dL (14.0-18.0); MEAN CORPUSCULAR HEMOGLOBIN 29.2 pg (28-32); MEAN CORPUSCULAR VOLUME 88.4 fL (81-99); RED BLOOD COUNT 3.19 x10e6/uL (4.3-5.7); RED CELL DISTRIBUTION WIDTH 26.1 % (11.7-14.4)
[2021-10-10 06:44] LABS: PLATELET COUNT 46 x10e3/uL (140-360)
[2021-10-10 07:01] LABS: INR 1.41; PROTHROMBIN TIME 18.2 seconds (11.9-14.5)
[2021-10-10 07:09] LABS: ALBUMIN 1.7 g/dL (3.5-5.0); ALBUMIN/GLOBULIN RATIO 0.4 (0.8-2.0); ANION GAP 19.9 mmol/L (8-16); CREATININE, SERUM 3.66 mg/dL (0.72-1.25); MAGNESIUM 1.6 MG/DL (1.3-2.1); POTASSIUM 3.9 mmol/L (3.5-5.1)
[2021-10-10 07:16] LABS: LYMPHOCYTES % (MANUAL) 5 % (19-48); MONOCYTES % (MANUAL) 10 % (3.4-9.0); NEUTROPHILS % (MANUAL) 84 % (40-74)
[2021-10-10 07:17] LABS: ANISOCYTOSIS MODERATE; PLATELET ESTIMATE MARKEDLY DECREASED; PLATELET MORPHOLOGY COMMENT NORMAL; RBC MORPHOLOGY COMMENT ABNORMAL
[2021-10-10 07:18] LABS: HYPOCHROMASIA SLIGHT
[2021-10-10] MEDS: INSULIN LISPRO 100 UNIT/1 ML 3ML VIAL SQ SCH ×4 (07:30→21:51)
[2021-10-10] MEDS: GLIPIZIDE 5 MG TAB PO SCH (08:46)
[2021-10-10] MEDS: MIDODRINE HCL 5 MG TABLET PO SCH ×3 (08:47→16:16)
[2021-10-10] MEDS: SODIUM BICARBONATE 650 MG TAB PO SCH ×3 (08:47→21:47)
[2021-10-10] MEDS: PANTOPRAZOLE SOD 40 MG TABEC PO SCH ×2 (08:47→17:08)
[2021-10-10] MEDS: MONTELUKAST SODIUM 10 MG TAB PO SCH (08:47)
[2021-10-10] MEDS: FINASTERIDE 5 MG TAB PO SCH (08:47)
[2021-10-10 13:59] LABS: CREATININE,URINE RANDOM 81.77 mg/dL (63-166); TOTAL PROTEIN, URINE 21.7 mg/dL (1-14)
[2021-10-10] MEDS: FLUCONAZOLE 200 MG/100 ML 100 ML IV SCH (16:16)
[2021-10-10] MEDS: TAMSULOSIN HCL 0.4 MG CAP PO SCH (21:47)
[2021-10-11] VITALS (8 sets, daily range): BP systolic 94–120; BP diastolic 69–77
[2021-10-11] MEDS: HEPARIN IV SCH (05:19)
[2021-10-11] MEDS: METOCLOPRAMIDE HCL 10 MG/2ML VIAL IV SCH ×4 (05:19→17:25)
[2021-10-11] MEDS: DEXTROSE 5% IV SCH (05:19)
[2021-10-11] MEDS: FUROSEMIDE INJ 10 MG/ML 4 ML VIAL IV SCH (05:19)
[2021-10-11] MEDS: METRONIDAZOLE 500MG/NS 100ML 100 ML IV SCH ×3 (05:19→22:10)
[2021-10-11] MEDS: HYDROCORTISONE SOD SUCCINATE 100 MG VIAL IV SCH ×3 (05:19→22:10)
[2021-10-11 07:03] LABS: BASOPHILS % 0.1 % (0.0-1.0); HEMATOCRIT 33.9 % (38.2-49.6); HEMOGLOBIN 10.6 g/dL (14.0-18.0); LYMPHOCYTES # (AUTO) 0.3 (1.0-3.2); MEAN CORPUSCULAR HEMOGLOBIN 28.7 pg (28-32); MEAN CORPUSCULAR HGB CONC 31.3 g/dL (31-35); MEAN CORPUSCULAR VOLUME 91.9 fL (81-99); MONOCYTES # (AUTO) 0.5 (0.2-0.8); MONOCYTES % 3.7 % (4.4-11.3); NEUTROPHILS # (AUTO) 12.5 (2.1-6.9); NEUTROPHILS % 93.1 % (38.7-80.0); PLATELET COUNT 57 x10e3/uL (140-360); RED BLOOD COUNT 3.69 x10e6/uL (4.3-5.7); RED CELL DISTRIBUTION WIDTH 26.8 % (11.7-14.4)
[2021-10-11 07:18] LABS: INR 1.31; PROTHROMBIN TIME 17.2 seconds (11.9-14.5)
[2021-10-11] MEDS: MIDODRINE HCL 5 MG TABLET PO SCH ×3 (08:00→17:22)
[2021-10-11] MEDS: FINASTERIDE 5 MG TAB PO SCH (09:00)
[2021-10-11] MEDS: PANTOPRAZOLE SOD 40 MG TABEC PO SCH ×2 (09:00→17:25)
[2021-10-11] MEDS: MONTELUKAST SODIUM 10 MG TAB PO SCH (09:00)
[2021-10-11] MEDS: SODIUM BICARBONATE 650 MG TAB PO SCH ×3 (09:00→21:31)
[2021-10-11] MEDS: GLIPIZIDE 5 MG TAB PO SCH (10:14)
[2021-10-11 10:29] LABS: ALBUMIN 1.8 g/dL (3.5-5.0); ALBUMIN/GLOBULIN RATIO 0.5 (0.8-2.0); ANION GAP 23.2 mmol/L (8-16); CALCIUM 8.6 mg/dL (8.4-10.2); CREATININE, SERUM 3.28 mg/dL (0.72-1.25); POTASSIUM 4.2 mmol/L (3.5-5.1)
[2021-10-11] MEDS: INSULIN LISPRO 100 UNIT/1 ML 3ML VIAL SQ SCH ×4 (10:29→21:33)
[2021-10-11] MEDS: FLUCONAZOLE 200 MG/100 ML 100 ML IV SCH (13:43)
[2021-10-11] MEDS: FUROSEMIDE 40 MG TAB PO SCH (17:26)
[2021-10-11] MEDS: TAMSULOSIN HCL 0.4 MG CAP PO SCH (21:31)
[2021-10-12] VITALS (10 sets, daily range): BP systolic 80–128; BP diastolic 44–81
[2021-10-12] MEDS: HYDROCORTISONE SOD SUCCINATE 100 MG VIAL IV SCH ×3 (05:21→21:18)
[2021-10-12] MEDS: METRONIDAZOLE 500MG/NS 100ML 100 ML IV SCH ×3 (05:21→21:17)
[2021-10-12] MEDS: METOCLOPRAMIDE HCL 10 MG/2ML VIAL IV SCH ×4 (05:21→17:47)
[2021-10-12] MEDS: FUROSEMIDE 40 MG TAB PO SCH ×2 (05:21→17:47)
[2021-10-12] MEDS ORDERED: SODIUM CHLORIDE 0.9% 250ML 250 ML ONE (05:23)
[2021-10-12] MEDS: HEPARIN IV SCH ×2 (05:56→17:39)
[2021-10-12] MEDS: DEXTROSE 5% IV SCH ×2 (05:56→17:39)
[2021-10-12] MEDS: INSULIN LISPRO 100 UNIT/1 ML 3ML VIAL SQ SCH ×4 (07:30→21:22)
[2021-10-12 07:53] LABS: BASOPHILS % 0.1 % (0.0-1.0); HEMATOCRIT 30.7 % (38.2-49.6); LYMPHOCYTES # (AUTO) 0.3 (1.0-3.2); LYMPHOCYTES % 1.7 % (18.0-39.1); MEAN CORPUSCULAR HEMOGLOBIN 28.9 pg (28-32); MEAN CORPUSCULAR HGB CONC 32.6 g/dL (31-35); MEAN CORPUSCULAR VOLUME 88.7 fL (81-99); MONOCYTES # (AUTO) 0.6 (0.2-0.8); MONOCYTES % 3.6 % (4.4-11.3); NEUTROPHILS # (AUTO) 16.4 (2.1-6.9); NEUTROPHILS % 93.4 % (38.7-80.0); PLATELET COUNT 53 x10e3/uL (140-360); RED BLOOD COUNT 3.46 x10e6/uL (4.3-5.7); RED CELL DISTRIBUTION WIDTH 26.6 % (11.7-14.4)
[2021-10-12 08:15] LABS: ALBUMIN 1.8 g/dL (3.5-5.0); ALBUMIN/GLOBULIN RATIO 0.5 (0.8-2.0); CALCIUM 8.6 mg/dL (8.4-10.2); CREATININE, SERUM 3.01 mg/dL (0.72-1.25); MAGNESIUM 1.6 MG/DL (1.3-2.1)
[2021-10-12] MEDS: PANTOPRAZOLE SOD 40 MG TABEC PO SCH ×2 (11:17→17:46)
[2021-10-12] MEDS: MIDODRINE HCL 5 MG TABLET PO SCH ×3 (11:17→15:20)
[2021-10-12] MEDS: GLIPIZIDE 5 MG TAB PO SCH (11:17)
[2021-10-12] MEDS: FINASTERIDE 5 MG TAB PO SCH (11:17)
[2021-10-12] MEDS: MONTELUKAST SODIUM 10 MG TAB PO SCH (11:18)
[2021-10-12] MEDS: SODIUM BICARBONATE 650 MG TAB PO SCH ×3 (11:18→21:17)
[2021-10-12] MEDS: HYDROCODONE/APAP 10MG-325MG TAB PO PRN (15:21)
[2021-10-12] MEDS: FLUCONAZOLE 200 MG/100 ML 100 ML IV SCH (15:21)
[2021-10-12] MEDS: TAMSULOSIN HCL 0.4 MG CAP PO SCH (21:17)
[2021-10-13] VITALS (8 sets, daily range): BP systolic 93–146; BP diastolic 69–97
[2021-10-13] MEDS: METOCLOPRAMIDE HCL 10 MG/2ML VIAL IV SCH ×5 (00:26→23:35)
[2021-10-13] MEDS: HYDROCORTISONE SOD SUCCINATE 100 MG VIAL IV SCH (05:02)
[2021-10-13] MEDS: METRONIDAZOLE 500MG/NS 100ML 100 ML IV SCH ×3 (05:08→21:07)
[2021-10-13] MEDS: FUROSEMIDE 40 MG TAB PO SCH ×2 (05:11→17:08)
[2021-10-13 05:22] LABS: BASOPHILS % 0.1 % (0.0-1.0); HEMATOCRIT 29.9 % (38.2-49.6); HEMOGLOBIN 9.7 g/dL (14.0-18.0); LYMPHOCYTES # (AUTO) 0.2 (1.0-3.2); LYMPHOCYTES % 1.3 % (18.0-39.1); MEAN CORPUSCULAR HEMOGLOBIN 29.2 pg (28-32); MEAN CORPUSCULAR HGB CONC 32.4 g/dL (31-35); MEAN CORPUSCULAR VOLUME 90.1 fL (81-99); MONOCYTES # (AUTO) 0.6 (0.2-0.8); MONOCYTES % 3.5 % (4.4-11.3); NEUTROPHILS % 94.2 % (38.7-80.0); PLATELET COUNT 58 x10e3/uL (140-360); RED BLOOD COUNT 3.32 x10e6/uL (4.3-5.7); RED CELL DISTRIBUTION WIDTH 26.4 % (11.7-14.4)
[2021-10-13 05:37] LABS: ALBUMIN 1.7 g/dL (3.5-5.0); ALBUMIN/GLOBULIN RATIO 0.4 (0.8-2.0); ANION GAP 20.1 mmol/L (8-16); CALCIUM 8.6 mg/dL (8.4-10.2); CREATININE, SERUM 2.73 mg/dL (0.72-1.25); POTASSIUM 4.1 mmol/L (3.5-5.1)
[2021-10-13] MEDS: INSULIN LISPRO 100 UNIT/1 ML 3ML VIAL SQ SCH ×4 (08:30→21:07)
[2021-10-13] MEDS: GLIPIZIDE 5 MG TAB PO SCH (09:00)
[2021-10-13] MEDS: MONTELUKAST SODIUM 10 MG TAB PO SCH (09:00)
[2021-10-13] MEDS: MIDODRINE HCL 5 MG TABLET PO SCH ×3 (09:00→17:08)
[2021-10-13] MEDS: FINASTERIDE 5 MG TAB PO SCH (09:00)
[2021-10-13] MEDS: PANTOPRAZOLE SOD 40 MG TABEC PO SCH ×2 (09:00→17:10)
[2021-10-13] MEDS: SODIUM BICARBONATE 650 MG TAB PO SCH ×3 (09:00→21:06)
[2021-10-13] MEDS: FLUCONAZOLE 200 MG/100 ML 100 ML IV SCH (13:00)
[2021-10-13] MEDS: TAMSULOSIN HCL 0.4 MG CAP PO SCH (21:06)
[2021-10-13] MEDS: HYDROCODONE/APAP 10MG-325MG TAB PO PRN (23:36)
[2021-10-14] VITALS (7 sets, daily range): BP systolic 96–123; BP diastolic 68–88
[2021-10-14] MEDS ORDERED: HEPARIN 25,000 UNIT DRIP IV ONE (00:17)
[2021-10-14] MEDS: DEXTROSE 5% IV SCH (02:20)
[2021-10-14] MEDS: HEPARIN IV SCH (02:20)
[2021-10-14] MEDS: METOCLOPRAMIDE HCL 10 MG/2ML VIAL IV SCH ×3 (06:19→17:46)
[2021-10-14] MEDS: METRONIDAZOLE 500MG/NS 100ML 100 ML IV SCH ×3 (06:19→21:38)
[2021-10-14] MEDS: FUROSEMIDE 40 MG TAB PO SCH ×2 (06:19→17:46)
[2021-10-14 06:30] LABS: BASOPHILS % 0.1 % (0.0-1.0); HEMATOCRIT 31.1 % (38.2-49.6); LYMPHOCYTES # (AUTO) 0.3 (1.0-3.2); LYMPHOCYTES % 1.2 % (18.0-39.1); MEAN CORPUSCULAR HEMOGLOBIN 29.1 pg (28-32); MEAN CORPUSCULAR HGB CONC 32.2 g/dL (31-35); MEAN CORPUSCULAR VOLUME 90.4 fL (81-99); MONOCYTES # (AUTO) 0.7 (0.2-0.8); MONOCYTES % 3.5 % (4.4-11.3); NEUTROPHILS % 94.1 % (38.7-80.0); PLATELET COUNT 60 x10e3/uL (140-360); RED BLOOD COUNT 3.44 x10e6/uL (4.3-5.7); RED CELL DISTRIBUTION WIDTH 26.6 % (11.7-14.4)
[2021-10-14 06:49] LABS: ALBUMIN 1.8 g/dL (3.5-5.0); ALBUMIN/GLOBULIN RATIO 0.5 (0.8-2.0); ANION GAP 22.1 mmol/L (8-16); CALCIUM 8.7 mg/dL (8.4-10.2); CREATININE, SERUM 2.58 mg/dL (0.72-1.25); MAGNESIUM 1.5 MG/DL (1.3-2.1); POTASSIUM 4.1 mmol/L (3.5-5.1)
[2021-10-14] MEDS: INSULIN LISPRO 100 UNIT/1 ML 3ML VIAL SQ SCH ×4 (08:30→21:41)
[2021-10-14] MEDS: SODIUM BICARBONATE 650 MG TAB PO SCH ×3 (08:45→21:39)
[2021-10-14] MEDS: FINASTERIDE 5 MG TAB PO SCH (08:45)
[2021-10-14] MEDS: MONTELUKAST SODIUM 10 MG TAB PO SCH (08:45)
[2021-10-14] MEDS: MIDODRINE HCL 5 MG TABLET PO SCH ×3 (08:45→17:46)
[2021-10-14] MEDS: PANTOPRAZOLE SOD 40 MG TABEC PO SCH ×2 (08:45→17:46)
[2021-10-14] MEDS: GLIPIZIDE 5 MG TAB PO SCH (08:45)
[2021-10-14] MEDS: TAMSULOSIN HCL 0.4 MG CAP PO SCH (21:38)
[2021-10-14] MEDS ORDERED: BISACODYL 5 MG TAB EC PO ONE (23:30)
[2021-10-15] VITALS (9 sets, daily range): BP systolic 79–114; BP diastolic 50–101
[2021-10-15] MEDS: METOCLOPRAMIDE HCL 10 MG/2ML VIAL IV SCH ×4 (00:01→17:35)
[2021-10-15] MEDS: HYDROCODONE/APAP 10MG-325MG TAB PO PRN ×2 (02:29→07:25)
[2021-10-15] MEDS: DEXTROSE 5% IV SCH ×2 (04:30→15:46)
[2021-10-15] MEDS: HEPARIN IV SCH ×2 (04:30→15:46)
[2021-10-15] MEDS: METRONIDAZOLE 500MG/NS 100ML 100 ML IV SCH ×3 (05:27→22:30)
[2021-10-15] MEDS: FUROSEMIDE 40 MG TAB PO SCH ×2 (05:27→17:47)
[2021-10-15 05:43] LABS: BASOPHILS % 0.2 % (0.0-1.0); EOSINOPHILS # (AUTO) 0.1 (0.0-0.4); EOSINOPHILS % 0.3 % (0.0-6.0); HEMATOCRIT 29.5 % (38.2-49.6); HEMOGLOBIN 9.6 g/dL (14.0-18.0); LYMPHOCYTES # (AUTO) 0.3 (1.0-3.2); LYMPHOCYTES % 1.7 % (18.0-39.1); MEAN CORPUSCULAR HEMOGLOBIN 28.9 pg (28-32); MEAN CORPUSCULAR HGB CONC 32.5 g/dL (31-35); MEAN CORPUSCULAR VOLUME 88.9 fL (81-99); MONOCYTES # (AUTO) 0.7 (0.2-0.8); MONOCYTES % 3.6 % (4.4-11.3); NEUTROPHILS # (AUTO) 17.9 (2.1-6.9); NEUTROPHILS % 93.1 % (38.7-80.0); RED BLOOD COUNT 3.32 x10e6/uL (4.3-5.7); RED CELL DISTRIBUTION WIDTH 26.8 % (11.7-14.4)
[2021-10-15 05:57] LABS: PLATELET COUNT 49 x10e3/uL (140-360)
[2021-10-15 06:10] LABS: INR 1.35; PROTHROMBIN TIME 17.6 seconds (11.9-14.5)
[2021-10-15 06:17] LABS: ALBUMIN 1.7 g/dL (3.5-5.0); ALBUMIN/GLOBULIN RATIO 0.5 (0.8-2.0); ANION GAP 24.1 mmol/L (8-16); CALCIUM 8.5 mg/dL (8.4-10.2); CREATININE, SERUM 2.61 mg/dL (0.72-1.25); POTASSIUM 4.1 mmol/L (3.5-5.1)
[2021-10-15] MEDS: MIDODRINE HCL 5 MG TABLET PO SCH ×3 (07:26→15:38)
[2021-10-15] MEDS: GLIPIZIDE 5 MG TAB PO SCH (07:26)
[2021-10-15] MEDS: INSULIN LISPRO 100 UNIT/1 ML 3ML VIAL SQ SCH ×4 (07:36→22:30)
[2021-10-15 08:34] LABS: MONOCYTES % (MANUAL) 2 % (3.4-9.0); NEUTROPHILS % (MANUAL) 98 % (40-74); PLATELET ESTIMATE MODERATELY DECREASED; PLATELET MORPHOLOGY COMMENT NORMAL
[2021-10-15 08:35] LABS: ANISOCYTOSIS SLIGHT; POIKILOCYTOSIS SLIGHT; RBC MORPHOLOGY COMMENT ABNORMAL
[2021-10-15 08:36] LABS: ELLIPTOCYTE, RBC SLIGHT; MICROCYTOSIS SLIGHT; OVALOCYTES FEW
[2021-10-15] MEDS: FINASTERIDE 5 MG TAB PO SCH (09:00)
[2021-10-15] MEDS: MONTELUKAST SODIUM 10 MG TAB PO SCH (09:00)
[2021-10-15] MEDS: PANTOPRAZOLE SOD 40 MG TABEC PO SCH ×2 (09:00→17:35)
[2021-10-15] MEDS: SODIUM BICARBONATE 650 MG TAB PO SCH ×3 (09:00→22:30)
[2021-10-15] MEDS ORDERED: SODIUM CHLORIDE 0.9% 500ML 500 ML IV ONE (14:30)
[2021-10-15] MEDS: TAMSULOSIN HCL 0.4 MG CAP PO SCH (22:30)
[2021-10-15] MEDS ORDERED: SODIUM CHLORIDE 0.9% 250ML 250 ML ONE (23:00)
[2021-10-16] VITALS (10 sets, daily range): BP systolic 76–115; BP diastolic 45–94
[2021-10-16] MEDS: METOCLOPRAMIDE HCL 10 MG/2ML VIAL IV SCH ×5 (00:14→23:45)
[2021-10-16 05:03] LABS: BASOPHILS % 0.2 % (0.0-1.0); EOSINOPHILS # (AUTO) 0.2 (0.0-0.4); EOSINOPHILS % 1.2 % (0.0-6.0); HEMATOCRIT 27.2 % (38.2-49.6); HEMOGLOBIN 8.8 g/dL (14.0-18.0); LYMPHOCYTES # (AUTO) 0.3 (1.0-3.2); LYMPHOCYTES % 2.7 % (18.0-39.1); MEAN CORPUSCULAR HEMOGLOBIN 28.8 pg (28-32); MEAN CORPUSCULAR HGB CONC 32.4 g/dL (31-35); MEAN CORPUSCULAR VOLUME 88.9 fL (81-99); MONOCYTES # (AUTO) 0.3 (0.2-0.8); MONOCYTES % 2.7 % (4.4-11.3); NEUTROPHILS # (AUTO) 11.9 (2.1-6.9); NEUTROPHILS % 92.6 % (38.7-80.0); PLATELET COUNT 60 x10e3/uL (140-360); RED BLOOD COUNT 3.06 x10e6/uL (4.3-5.7); RED CELL DISTRIBUTION WIDTH 26.8 % (11.7-14.4)
[2021-10-16 05:14] LABS: INR 1.41; PROTHROMBIN TIME 18.2 seconds (11.9-14.5)
[2021-10-16 05:40] LABS: ALBUMIN 1.6 g/dL (3.5-5.0); ALBUMIN/GLOBULIN RATIO 0.4 (0.8-2.0); ANION GAP 23.1 mmol/L (8-16); CALCIUM 8.2 mg/dL (8.4-10.2); CREATININE, SERUM 2.84 mg/dL (0.72-1.25); POTASSIUM 4.1 mmol/L (3.5-5.1)
[2021-10-16] MEDS: METRONIDAZOLE 500MG/NS 100ML 100 ML IV SCH (06:50)
[2021-10-16] MEDS: FUROSEMIDE 40 MG TAB PO SCH ×2 (06:50→16:45)
[2021-10-16] MEDS: INSULIN LISPRO 100 UNIT/1 ML 3ML VIAL SQ SCH ×4 (07:30→20:05)
[2021-10-16] MEDS: MIDODRINE HCL 5 MG TABLET PO SCH ×3 (09:21→16:45)
[2021-10-16] MEDS: GLIPIZIDE 5 MG TAB PO SCH (09:21)
[2021-10-16] MEDS: SODIUM BICARBONATE 650 MG TAB PO SCH ×3 (09:22→20:15)
[2021-10-16] MEDS: PANTOPRAZOLE SOD 40 MG TABEC PO SCH ×2 (09:22→16:45)
[2021-10-16] MEDS: MONTELUKAST SODIUM 10 MG TAB PO SCH (09:22)
[2021-10-16] MEDS: FINASTERIDE 5 MG TAB PO SCH (09:22)
[2021-10-16] MEDS ORDERED: LIDOCAINE HCL 1% LOCAL INJ 20 ML VIAL ONE (11:39)
[2021-10-16] MEDS ORDERED: SODIUM CHLORIDE 0.9% 250ML 250 ML ONE (11:40)
[2021-10-16] MEDS ORDERED: MIDAZOLAM HCL 2 MG/2 ML VIAL ONE (11:49)
[2021-10-16] MEDS ORDERED: FENTANYL CITRATE/PF 100MCG/2 ML INJ ONE (11:49)
[2021-10-16] MEDS: TAMSULOSIN HCL 0.4 MG CAP PO SCH (20:15)
[2021-10-16] MEDS: ONDANSETRON HCL 4 MG ORAL DISINTEGRATING TAB PO PRN (20:16)
[2021-10-17] MEDS: FUROSEMIDE 40 MG TAB PO SCH (00:43)
[2021-10-17 00:53] VITALS: BP 89/55
[2021-10-17] MEDS: MELATONIN 5 MG TABLET PO SCH ×2 (01:18→22:47)
[2021-10-17 01:31] LABS: CLARITY,URINE CLOUDY (CLEAR); COLOR,URINE BROWN (YELLOW); KETONES,URINE 1+ (NEGATIVE); LEUKOCYTE ESTERASE ,URINE TRACE (NEGATIVE); NITRITE,URINE POSITIVE (NEGATIVE); PROTEIN,URINE DIPSTICK 1+ (NEGATIVE); URINE UROBILINOGEN 1 mg/dL (0.2 - 1)
[2021-10-17 01:34] LABS: AMORPHOUS SEDIMENT,URINE MODERATE (FEW); BACTERIA,URINE FEW /HPF; EPITHELIAL CELLS,URINE FEW /LPF; YEAST,URINE MANY
[2021-10-17] MEDS: HEPARIN IV SCH (03:08)
[2021-10-17] MEDS: DEXTROSE 5% IV SCH (03:08)
[2021-10-17] MEDS ORDERED: HEPARIN 25,000 UNIT DRIP IV ONE (03:15)
[2021-10-17] MEDS ORDERED: SODIUM CHLORIDE 0.9% 250ML 250 ML ONE (05:23)
[2021-10-17] MEDS ORDERED: SODIUM CHLORIDE 0.9% 500ML 500 ML IV ONE (05:30)
[2021-10-17] MEDS: METOCLOPRAMIDE HCL 10 MG/2ML VIAL IV SCH ×3 (05:45→17:31)
[2021-10-17] MEDS: METRONIDAZOLE 500MG/NS 100ML 100 ML IV SCH ×3 (05:45→22:41)
[2021-10-17 05:53] VITALS: BP_SYST 79; BP_SYST 92; BP_DIAS 54
[2021-10-17 06:27] LABS: ALBUMIN 1.4 g/dL (3.5-5.0); ALBUMIN/GLOBULIN RATIO 0.5 (0.8-2.0); ANION GAP 21.8 mmol/L (8-16); BASOPHILS % 0.2 % (0.0-1.0); CALCIUM 8.1 mg/dL (8.4-10.2); CREATININE, SERUM 3.48 mg/dL (0.72-1.25); EOSINOPHILS # (AUTO) 0.1 (0.0-0.4); EOSINOPHILS % 1.3 % (0.0-6.0); HEMATOCRIT 24.8 % (38.2-49.6); LYMPHOCYTES # (AUTO) 0.2 (1.0-3.2); LYMPHOCYTES % 2.4 % (18.0-39.1); MEAN CORPUSCULAR HGB CONC 32.3 g/dL (31-35); MEAN CORPUSCULAR VOLUME 89.9 fL (81-99); MONOCYTES # (AUTO) 0.2 (0.2-0.8); MONOCYTES % 1.9 % (4.4-11.3); NEUTROPHILS # (AUTO) 9.2 (2.1-6.9); NEUTROPHILS % 91.3 % (38.7-80.0); POTASSIUM 4.8 mmol/L (3.5-5.1); RED BLOOD COUNT 2.76 x10e6/uL (4.3-5.7)
[2021-10-17 06:30] LABS: PLATELET COUNT 43 x10e3/uL (140-360)
[2021-10-17 06:43] LABS: INR 1.8
[2021-10-17 06:45] LABS: PARTIAL THROMBOPLASTIN TIME 64.7 seconds (23.8-35.5)
[2021-10-17] MEDS: INSULIN LISPRO 100 UNIT/1 ML 3ML VIAL SQ SCH ×4 (07:30→21:00)
[2021-10-17] MEDS: GLIPIZIDE 5 MG TAB PO SCH (07:30)
[2021-10-17 07:59] LABS: BAND NEUTROPHILS % (MANUAL) 8 %; EOSINOPHILS % (MANUAL) 1 % (0-7); MONOCYTES % (MANUAL) 2 % (3.4-9.0); NEUTROPHILS % (MANUAL) 89 % (40-74)
[2021-10-17 08:00] LABS: ANISOCYTOSIS MARKED; HYPOCHROMASIA MODERATE; PLATELET ESTIMATE MARKEDLY DECREASED; PLATELET MORPHOLOGY COMMENT NORMAL; POIKILOCYTOSIS SLIGHT; RBC MORPHOLOGY COMMENT ABNORMAL
[2021-10-17] MEDS: MIDODRINE HCL 5 MG TABLET PO SCH ×3 (08:00→16:00)
[2021-10-17] MEDS ORDERED: SODIUM CHLORIDE 0.9% 1000ML 1,000 ML ONE (08:09)
[2021-10-17 08:30] VITALS: BP 79/54
[2021-10-17] MEDS: SODIUM CHLORIDE 0.9% 1000ML 1,000 ML IV SCH ×2 (08:30→21:50)
[2021-10-17] MEDS: PANTOPRAZOLE SOD 40 MG TABEC PO SCH ×2 (09:00→17:00)
[2021-10-17] MEDS: SODIUM BICARBONATE 650 MG TAB PO SCH ×3 (14:27→22:48)
[2021-10-17] MEDS: FINASTERIDE 5 MG TAB PO SCH (14:30)
[2021-10-17] MEDS: MONTELUKAST SODIUM 10 MG TAB PO SCH (14:30)
[2021-10-17 20:00] VITALS: BP 199/170
[2021-10-17 21:10] VITALS: BP 199/170
[2021-10-17] MEDS: TAMSULOSIN HCL 0.4 MG CAP PO SCH (22:47)
[2021-10-17] MEDS ORDERED: Morphine 2mg Syringe 2 MG/ML SYR IV PRN (23:45)
[2021-10-18] VITALS: BP 184/154
[2021-10-18] MEDS: ALBUTEROL/IPRATROPIUM 3 ML NEB NEB SCH ×2 (00:12→07:00)
[2021-10-18] MEDS: METOCLOPRAMIDE HCL 10 MG/2ML VIAL IV SCH ×2 (00:20→06:08)
[2021-10-18] MEDS ORDERED: DIPHENHYDRAMINE HCL INJ 50 MG/ML VIAL IV ONE (02:15)
[2021-10-18 04:00] VITALS: BP 77/39
[2021-10-18] MEDS ORDERED: SODIUM CHLORIDE 0.9% 1000ML 500 ML IV ONE (04:15)
[2021-10-18] MEDS: METRONIDAZOLE 500MG/NS 100ML 100 ML IV SCH (06:08)
[2021-10-18 06:15] LABS: BASOPHILS # (AUTO) 0.1 (0.0-0.1); BASOPHILS % 0.5 % (0.0-1.0); EOSINOPHILS # (AUTO) 0.1 (0.0-0.4); EOSINOPHILS % 1.3 % (0.0-6.0); HEMATOCRIT 23.7 % (38.2-49.6); HEMOGLOBIN 7.4 g/dL (14.0-18.0); LYMPHOCYTES # (AUTO) 0.2 (1.0-3.2); MEAN CORPUSCULAR HEMOGLOBIN 29.1 pg (28-32); MEAN CORPUSCULAR HGB CONC 31.2 g/dL (31-35); MEAN CORPUSCULAR VOLUME 93.3 fL (81-99); MONOCYTES # (AUTO) 0.2 (0.2-0.8); MONOCYTES % 1.9 % (4.4-11.3); NEUTROPHILS # (AUTO) 9.4 (2.1-6.9); NEUTROPHILS % 93.4 % (38.7-80.0); RED BLOOD COUNT 2.54 x10e6/uL (4.3-5.7); RED CELL DISTRIBUTION WIDTH 26.9 % (11.7-14.4)
[2021-10-18 06:18] LABS: PLATELET COUNT 44 x10e3/uL (140-360)
[2021-10-18 06:33] LABS: INR 1.94; PROTHROMBIN TIME 23.3 seconds (11.9-14.5)
[2021-10-18 06:35] LABS: PARTIAL THROMBOPLASTIN TIME 64.4 seconds (23.8-35.5)
[2021-10-18 07:05] LABS: ALBUMIN 1.3 g/dL (3.5-5.0); ALBUMIN/GLOBULIN RATIO 0.4 (0.8-2.0); ANION GAP 24.1 mmol/L (8-16); CALCIUM 7.7 mg/dL (8.4-10.2); CREATININE, SERUM 3.64 mg/dL (0.72-1.25); POTASSIUM 5.1 mmol/L (3.5-5.1)
[2021-10-18] MEDS: DEXTROSE 50% SYRINGE 50 ML IV PRN (07:15)
[2021-10-18 08:07] VITALS: BP 56/41
[2021-10-18 10:16] LABS: LYMPHOCYTES % (MANUAL) 6 % (19-48); MONOCYTES % (MANUAL) 1 % (3.4-9.0); NEUTROPHILS % (MANUAL) 93 % (40-74)
[2021-10-18 10:17] LABS: PLATELET ESTIMATE MODERATELY DECREASED; PLATELET MORPHOLOGY COMMENT NORMAL
[2021-10-18 10:18] LABS: ANISOCYTOSIS SLIGHT; POIKILOCYTOSIS SLIGHT; RBC MORPHOLOGY COMMENT ABNORMAL; TARGET CELLS FEW
== END 2021-10-18 14:45 | disposition expired | DRG 862 ==
LOC: ER 17:54 → ERHOLD 21:48 → MED/SURG2 23:06
PROVIDERS: ADMIT Internal Medicine; ATTEND Internal Medicine
PROC: 02HV33Z Insertion of Infusion Device into Superior Vena Cava, Percutaneous Approach (ICD-10-PCS; principal; 2021-10-02)
PROC: 0W993ZZ Drainage of Right Pleural Cavity, Percutaneous Approach (ICD-10-PCS; 2021-10-04)
PROC: 0W9930Z Drainage of Right Pleural Cavity with Drainage Device, Percutaneous Approach (ICD-10-PCS; 2021-10-04)
PROC: 30243R1 Transfusion of Nonautologous Platelets into Central Vein, Percutaneous Approach (ICD-10-PCS; 2021-10-15)
DX: T81.43XA Infection following a procedure, organ and space surgical site, initial encounter (principal); K55.059 Acute (reversible) ischemia of intestine, part and extent unspecified; J96.01 Acute respiratory failure with hypoxia; A41.9 Sepsis, unspecified organism; R65.20 Severe sepsis without septic shock; N17.0 Acute kidney failure with tubular necrosis; C18.0 Malignant neoplasm of cecum; C78.7 Secondary malignant neoplasm of liver and intrahepatic bile duct; J91.0 Malignant pleural effusion; E87.2 Acidosis; E87.1 Hypo-osmolality and hyponatremia; C78.00 Secondary malignant neoplasm of unspecified lung; B37.89 Other sites of candidiasis; M46.28 Osteomyelitis of vertebra, sacral and sacrococcygeal region; J93.83 Other pneumothorax; N18.4 Chronic kidney disease, stage 4 (severe); J94.8 Other specified pleural conditions; R18.0 Malignant ascites; E46 Unspecified protein-calorie malnutrition; K44.9 Diaphragmatic hernia without obstruction or gangrene; D50.9 Iron deficiency anemia, unspecified; E77.8 Other disorders of glycoprotein metabolism; E88.09 Other disorders of plasma-protein metabolism, not elsewhere classified; R74.01 Elevation of levels of liver transaminase levels; Z79.4 Long term (current) use of insulin; Z79.899 Other long term (current) drug therapy; E78.5 Hyperlipidemia, unspecified; E87.8 Other disorders of electrolyte and fluid balance, not elsewhere classified; E87.5 Hyperkalemia; E11.649 Type 2 diabetes mellitus with hypoglycemia without coma; I12.9 Hypertensive chronic kidney disease with stage 1 through stage 4 chronic kidney disease, or unspecified chronic kidney disease; K59.00 Constipation, unspecified; Z51.5 Encounter for palliative care; N50.89 Other specified disorders of the male genital organs; Z99.81 Dependence on supplemental oxygen; Z66 Do not resuscitate; Z68.25 Body mass index [BMI] 25.0-25.9, adult
CPT/HCPCS: 32555; 32557; 36415; 36569; 36600; 71045; 71250; 74177; 74470; 76604; 76770; 80048; 80053; 80202; 81001; 82140; 82150; 82378; 82550; 82553; 82570; 82805; 82948; 83605; 83615; 83690; 83735; 84156; 84157; 84484; 85007; 85025; 85027; 85049; 85610; 85730; 86900; 87040; 87070; 87071; 87086; 87205; 88112; 88305; 89051; 93005; 94640; 94799; 96360; 96365; 96366; 96372; 97139; 99251; 99284; C1729; J0610; J0692; J0696; J1200; J1450; J1644; J1720; J1817; J1940; J2001; J2250; J2270; J2405; J2765; J3010; J3370; J3410; J7030; J7040; J7050; J7070; J7799; P9034; Q0162; Q9967; U0002